=== PATIENT | male | born 1940 | race Asian ===

== ENCOUNTER 2018-10-13 14:49 | Inpatient (IN) | payer OTHER ==
[~2018-10-13] VITALS: Ht 162.6 cm; Wt 68.0 kg
[2018-10-13 14:50] VITALS: BP 115/73
--- NOTE | 2018-10-13 14:52 | NUR ---
PT BIBA TO BED 11.
--- NOTE | 2018-10-13 15:15 | NUR ---
electronic warfare technical at bedside.
--- NOTE | 2018-10-13 15:17 | NUR ---
PATIENT PRESENTS TO ED WITH via pt's daughter interpreting from german to guyanese unprovoked left sided chest pain squeezing radiating left arm x today remains but mild as described by pt. denies sob at this time no pedal edema or jvd noted DENIES N/V/D; SKIN IS PINK/WARM/DRY; AAOX4 WITH EVEN AND STEADY GAIT; LUNGS CLEAR BL; HR EVEN AND REGULAR; PT DENIES ANY FEVER,, SOB, OR COUGH AT THIS TIME; PATIENT STATES PAIN OF 5/10 AT THIS TIME; VSS; PATIENT POSITIONED FOR COMFORT; HOB ELEVATED; BEDRAILS UP X2; BED DOWN. ER MD MADE AWARE OF PT STATUS.
--- NOTE | 2018-10-13 15:26 | NUR ---
blood collected and walked over to lab
[2018-10-13 15:29] LABS: BASOPHILS # (AUTO) 0.1 K/uL (0.00-0.22); BASOPHILS % (AUTO) 0.7 % (0.0-2.0); EOSINOPHILS # (AUTO) 0.1 K/uL (0-0.4); EOSINOPHILS % (AUTO) 0.8 % (0.0-4.0); HEMATOCRIT 38.9 % (36-52); LYMPHOCYTES # (AUTO) 1.5 K/uL (2.0-11.5); LYMPHOCYTES % (AUTO) 14.1 % (20.5-51.1); MEAN CORPUSCULAR HEMOGLOBIN 30 pg (27-31); MEAN CORPUSCULAR HGB CONC 33 g/dL (33-37); MEAN CORPUSCULAR VOLUME 89.6 fL (80-94); NEUTROPHILS # (AUTO) 8.2 K/uL (1.8-7.7); NEUTROPHILS % (AUTO) 75.4 % (42.2-75.2); PLATELET COUNT (AUTO) 262 K/uL (140-450); RED BLOOD CELL COUNT(AUTO) 4.34 MIL/uL (4.20-6.10); RED CELL DISTRIBUTION WIDTH 14.4 % (11.6-13.7); WHITE BLOOD COUNT (AUTO) 10.8 K/uL (4.8-10.8)
[2018-10-13 15:55] LABS: ALBUMIN 3.6 g/dL (3.4-5.0); ANION GAP 13.5 (8-16); ASPARTATE AMINOTRANSFERASE 102 U/L (15-37); CARBON DIOXIDE 26.9 mmol/L (21-32); CHLORIDE 102 mmol/L (98-107); GLUCOSE 111 mg/dL (74-106); POTASSIUM 3.4 mmol/L (3.5-5.1); SODIUM SERUM 139 mmol/L (136-145); TOTAL BILIRUBIN 0.7 mg/dL (0.0-1.0); UREA NITROGEN, BLOOD 16 mg/dL (7-18)
--- NOTE | 2018-10-13 16:28 | NUR ---
ABNORMAL TROP LEVEL REPORTED BY LAB---TROP 15 NOTIFIED---WILL REDRAW
--- NOTE | 2018-10-13 16:31 | NUR ---
FAMILY REMAINS AT BEDSIDE---PT ADMITS TO 08/10 C/P REMAINS NO GRIMACE NO MOAN---HOLDING CONVERSATION WITH FAMILY WILL CONTINUE TO MONITOR FOR ANY CHANGES.
[2018-10-13 16:37] LABS: APPEARANCE,URINE CLEAR (CLEAR); BILIRUBIN,URINE NEGATIVE (NEGATIVE); BLOOD, URINE TRACE-L (NEGATIVE); COLOR,URINE YELLOW (YELLOW); LEUKOCYTE ESTERASE ,URINE TRACE (NEGATIVE); NITRITE, URINE NEGATIVE (NEGATIVE); UGLUCOSE NEGATIVE (NEGATIVE)
[2018-10-13 16:45] LABS: RBC,URINE 0-5 /HPF (0-5); WBC,URINE 0-5 /HPF (0-5)
[2018-10-13] MEDS ORDERED: LORazepam 2 MG/ML VIAL IM/IVP PRN (17:30)
[2018-10-13] MEDS ORDERED: ONDANSETRON 4 MG/2 ML VIAL IM/IVP PRN (17:30)
[2018-10-13] MEDS ORDERED: NACL 0.9% 1,000 ML IV SCH (17:30)
[2018-10-13] MEDS ORDERED: ACETAMINOPHEN 325 MG TAB PO PRN (17:30)
[2018-10-13] MEDS ORDERED: HYDROcodone/APAP 5/325 MG 1 TAB TAB PO PRN (17:30)
[2018-10-13] MEDS ORDERED: DOCUSATE SODIUM 100 MG GELCAP PO PRN (17:30)
[2018-10-13] MEDS ORDERED: HEPARIN PER PHARMACY MC PRN (17:35)
[2018-10-13] MEDS ORDERED: hePARIN / DEXT 5% PREMIX 250 ML IV SCH (17:35)
[2018-10-13] MEDS ORDERED: NITROGLYCERIN 0.4 MG TAB SL PRN (17:35)
--- NOTE | 2018-10-13 17:47 | NUR ---
CONTINUES TO ADMIT PAIN LEFT SIDE OF CHEST BELOW TOLERABLE LEVEL---DENIES N/V CONTINUES TO WAIT FOR AVAILABLE ROOM FOR ADMISSION
--- NOTE | 2018-10-13 18:05 | NUR ---
RECEIVED PT FROM ER VIA ÁLVARO. ALERT AND ORIENTED X4. VERBALIZES NEEDS. AMBULATORY. ORIENTED TO ROOM. SKIN DRY AND WARM TO TOUCH. SKIN DRY AND WARM TO TOUCH. IN ROOM AIR. NO SOB OR ACUTE RESPIRATORY DISTRESS NOTED. LUNGS CLEAR ON AUSCULTATION. PERIPHERAL LINE ON RFA 20. INTACT LINE. SALINE LOCK. ABDOMEN SOFT, ROUND AND NON-TENDER. ACTIVE BOWEL SOUND. DENIES ANY HEADACHE, CHEST PAIN OR DIZZINESS AT THIS TIME. SKIN INTACT. BED IN LOW POSITION LOCKED. WILL CONTINUE TO MONITOR.
[2018-10-13 18:10] VITALS: BP 108/62
[2018-10-13] MEDS ORDERED: ASPIRIN 81 MG TAB.CHEW PO SCH (18:10)
--- NOTE | 2018-10-13 18:14 | NUR ---
Pt transferred to Tele via [facility] ROOM 128-B; REPORT GIVEN ALLAN LAMAS
[2018-10-13] MEDS ORDERED: METOPROLOL 25 MG TAB PO SCH ×2 (18:15→21:00)
[2018-10-13] MEDS ORDERED: ATORVASTATIN 20 MG TAB PO SCH (18:15)
[2018-10-13] MEDS ORDERED: LISINOPRIL 5 MG TAB PO SCH (18:20)
[2018-10-13 18:24] LABS: BARBITURATE, URINE NEG. ng/ml (NEG <=200); BENZODIAZEPINE, URINE NEG. ng/mL (NEG <=200); CANNABINOID, URINE NEG. ng/mL (NEG <=50); COCAINE, URINE NEG. ng/mL (NEG <=300); OPIATE, URINE NEG. ng/mL (NEG <=2000); PHENCYCLIDINE SCREEN,URINE NEG. ng/mL (NEG <=25)
[2018-10-13 18:26] LABS: PROTHROMBIN TIME 9.8 secs (10.8-13.4)
[2018-10-13 18:27] LABS: CHOL/HDL RATIO 2.8 (1-4.5); MAGNESIUM 1.9 mg/dL (1.8-2.4); PHOSPHORUS 3.2 mg/dL (2.5-4.9); THYROID STIMULATING HORMONE 0.88 uIU/mL (0.34-3.74)
--- NOTE | 2018-10-13 18:30 | NUR ---
MRSA NARES SWAB TAKEN TO THE LAB.
--- NOTE | 2018-10-13 19:30 | NUR ---
REPORT GIVEN TO SOLAR MECHANICAL ENGINEER RN FOR CONTINUITY OF CARE. PT ON STABLE CONDITION.
--- NOTE | 2018-10-13 19:35 | NUR ---
RECEIVED REPORT FROM DAY SHIFT NURSE. AAOX4. NO C/O PAIN AT THIS TIME. NO SOB NOTED. ON ROOM AIR. SKIN INTACT. CHINESE SPEAKING. FAMILY AT BEDSIDE. PT'S DAUGHTER SCOT, SPEAKS AND UNDERSTANDS EQUATORIAL GUINEAN. IV TO RIGHT FA #20G, PATENT AND INTACT. DISCUSSED PLAN OF CARE, PT AND FAMILY VERBALIZED UNDERSTANDING. SAFETY PRECAUTION IN PLACE, CALL LIGHT WITHIN REACH.
[2018-10-13 20:00] VITALS: BP 113/65
--- NOTE | 2018-10-13 20:30 | NUR ---
INSERTED IV LINE TO RIGHT WRIST #22G TO USE FOR HEPARIN DRIP. GOOD FLUSH AND BLOOD RETURN. PT TOLERATED PROCEDURE WELL.
[2018-10-13] MEDS: hePARIN / DEXT 5% PREMIX 250 ML IV SCH ×2 (20:59→23:27)
--- NOTE | 2018-10-13 20:59 | NUR ---
HEPARIN BOLUS 4100 UNITS GIVEN. STARTED HEPARIN DRIP AT 3 ML/HR. CHECK PTT ON 10/14/18 AT 0259
[2018-10-13] MEDS ORDERED: ZOLPIDEM 5 MG TAB PO PRN (21:00)
[2018-10-13] MEDS: METOPROLOL 25 MG TAB PO SCH (21:33)
[2018-10-13] MEDS: MORPHINE SULFATE 4 MG/ML SYR IVP PRN (21:34)
--- NOTE | 2018-10-13 23:27 | NUR ---
CLARIFICATION OF HEPARIN DRIP ORDER. ORDER CHANGED FROM 3 ML/HR TO 8 ML/HR.
[2018-10-14 00:25] VITALS: BP 131/113
--- NOTE | 2018-10-14 00:35 | NUR ---
RECEIVED CRITICAL LAB VALUE TROPONIN 12.570. DR. ANGUIANO MADE AWARE.
--- NOTE | 2018-10-14 00:45 | NUR ---
DR. ANGUIANO MADE AWARE OF PT'S BP 131/113. MD ORDERED TO LOWER THE IVF TO 20 ML/HR.
[2018-10-14] MEDS ORDERED: POTASSIUM CHLORIDE 10 MEQ TABER PO SCH (01:30)
--- NOTE | 2018-10-14 01:35 | NUR ---
K DUR 40 MEQ PO GIVEN. PT TOLERATED WELL. PT DENIES PAIN OR SOB.
[2018-10-14] MEDS: hePARIN / DEXT 5% PREMIX 250 ML IV SCH (03:34)
--- NOTE | 2018-10-14 03:40 | NUR ---
RECEIVED CRITICAL LAB VALUE PTT 89.3. DR. ANGUIANO MADE AWARE. HEPARIN DRIP ADJUSTED TO 7 ML/HR PER PROTOCOL. CHECK PTT LEVEL 10/14/18 AT 0934.
[2018-10-14 04:00] VITALS: BP 112/60
--- NOTE | 2018-10-14 04:00 | NUR ---
PT'S BP 112/60. HR 58. PT LYING IN BED, AWAKE. DENIES PAIN. RESP EVEN AND UNLABORED.
--- NOTE | 2018-10-14 06:00 | NUR ---
PT SLEEPING. NO S/S OF PAIN. NO S/S OF RESP DISTRESS NOTED. IVF AND HEPARIN DRIP, INFUSING WELL. CALL LIGHT WITHIN REACH.
[2018-10-14] MEDS: MORPHINE SULFATE 4 MG/ML SYR IVP PRN (06:43)
--- NOTE | 2018-10-14 06:45 | NUR ---
PT C/O CHEST PAIN 02/10. DR. OWENS ORDERED TO GIVE MORPHINE NOW. MORPHINE 2 MG IVP GIVEN.
--- NOTE | 2018-10-14 06:50 | NUR ---
PT STILL C/O CHEST PAIN. BP 91/53, HR 58, O2 SAT 96%RA. DR. VU CAME IN TO SEE PT. HE ORDERED EKG STAT AND O2 AT 2L/MIN VIA NC, 99%. Addendum: 10/14/18 at 0727 by Kelsey Olmos RN PER , WE COULDN'T GIVE NITRO AT THIS TIME DUE TO PT'S LOW BP AND HR.
--- NOTE | 2018-10-14 07:02 | NUR ---
CALLED RT FOR STAT EKG.
--- NOTE | 2018-10-14 07:13 | NUR ---
Called [facility], talked to Devaughn [phone], stated to fax all the patient's information to [phone]. Will let RN know
--- NOTE | 2018-10-14 07:15 | NUR ---
CALLED DR. VU FOR EKG RESULT. SPOKE WITH DR. RAMÍREZ, THEY'RE AT THE MEETING AT THIS TIME AND WILL RELAY THE EKG RESULT TO DR. VU.
[2018-10-14 07:16] LABS: BASOPHILS # (AUTO) 0.1 K/uL (0.00-0.22); BASOPHILS % (AUTO) 0.9 % (0.0-2.0); EOSINOPHILS % (AUTO) 0.1 % (0.0-4.0); HEMATOCRIT 35.1 % (36-52); HEMOGLOBIN 11.8 g/dL (12.0-18.0); LYMPHOCYTES # (AUTO) 1.7 K/uL (2.0-11.5); LYMPHOCYTES % (AUTO) 12.7 % (20.5-51.1); MEAN CORPUSCULAR HEMOGLOBIN 30 pg (27-31); MEAN CORPUSCULAR HGB CONC 34 g/dL (33-37); MEAN CORPUSCULAR VOLUME 89.6 fL (80-94); MONOCYTES # (AUTO) 1.4 K/uL (0.8-1.0); MONOCYTES % (AUTO) 10.7 % (1.7-9.3); NEUTROPHILS # (AUTO) 10.1 K/uL (1.8-7.7); NEUTROPHILS % (AUTO) 75.6 % (42.2-75.2); PLATELET COUNT (AUTO) 247 K/uL (140-450); RED BLOOD CELL COUNT(AUTO) 3.91 MIL/uL (4.20-6.10); RED CELL DISTRIBUTION WIDTH 14.6 % (11.6-13.7); WHITE BLOOD COUNT (AUTO) 13.4 K/uL (4.8-10.8)
--- NOTE | 2018-10-14 07:25 | NUR ---
ENDORSED PT TO DAY SHIFT NURSE FOR CONTINUITY OF CARE. PT IN STABLE CONDITION. PT SLEEPING AT THIS TIME.
--- NOTE | 2018-10-14 07:26 | NUR ---
SBAR REPORT RECEIVED AT BEDSIDE. PATIENT RESTING IN BED, NO ACUTE DISTRESS NOTED. EASILY AWAKENS, ALERT, NORTH KOREAN SPEAKING. ON 2L NC. PATIENT ON HEPARIN DRIP. ON TELEMETRY MONITORING. DR. VU AWARE OF PATIENT CONDITION AND CRITICAL LAB VALUES. CONTINUE WITH CURRENT PLAN OF CARE.
[2018-10-14 07:27] LABS: ANION GAP 13.6 (8-16); CARBON DIOXIDE 25.4 mmol/L (21-32); CHLORIDE 105 mmol/L (98-107); CREATININE 1.2 mg/dL (0.7-1.3); GLUCOSE 123 mg/dL (74-106); SODIUM SERUM 140 mmol/L (136-145); UREA NITROGEN, BLOOD 16 mg/dL (7-18)
[2018-10-14 08:00] VITALS: BP 97/62
--- NOTE | 2018-10-14 08:02 | NUR ---
PATIENT SLEEPING AT THIS TIME, NO ACUTE DISTRESS NOTED. SPOKE WITH DR. Bismark ALBRIGHT, PATIENT WILL BE TRANSFERRED TO [facility] @ 5PM TODAY, CONTINUE WITH CURRENT TREATMENT AT THIS TIME. PATIENT CONTINUED ON HEPARIN DRIP. SPOKE WITH DR. CHIP MD MADE AWARE, CONTINUE WITH TRANSFER TO ICU FOR CLOSE MONITORING. TROPONIN LEVELS TRENDING DOWN, MD AWARE.
--- NOTE | 2018-10-14 08:08 | NUR ---
Called HS Leigh Ann, let her know that Aleena called and stated that patient will transfer to [facility] at 5pm. Leigh Ann stated that she received fax already
--- NOTE | 2018-10-14 08:20 | NUR ---
PATIENT HAS BEEN SCREENED AND CATEGORIZED MODERATE NUTRITION RISK. PATIENT WILL BE SEEN WITHIN 3-5 DAYS OF ADMISSION. 10/16/18ISABEL JENKINS RD
--- NOTE | 2018-10-14 08:29 | NUR ---
[place]ED [facility] [place] [phone] LEFT A MESSAGE FOR AUTHORIZATION FOR TRANSFER TO HIGHER LEVEL OF CARE FOR CARDIAC CATHETERIZATION.
[2018-10-14] MEDS ORDERED: LACTOBACILLUS RHAMNOSUS GG 1 EACH CAP PO SCH (09:00)
[2018-10-14] MEDS ORDERED: LISINOPRIL 5 MG TAB PO SCH ×2 (09:00)
[2018-10-14] MEDS ORDERED: ASPIRIN 81 MG TAB.CHEW PO SCH ×2 (09:00)
[2018-10-14] MEDS ORDERED: ATORVASTATIN 20 MG TAB PO SCH ×2 (09:00)
--- NOTE | 2018-10-14 09:09 | NUR ---
CALLED [facility] SENIOR HEALTH EDUCATOR SPOKE WITH ISABEL ,CARDIAC CATHETERIZATION IS SCHEDULE AT 5 PM AND PATIENT HAS TO BE THERE BY 2PM . ARRANGE TRANSPORT WITH [facility] FELT CUTTING MACHINE OPERATOR TIME WILL BE 1PM ,NOTIFIED DR VU AND DOMI ICU NURSE.
--- NOTE | 2018-10-14 09:10 | NUR ---
PT TRANSFERRED FROM TELEMETRY 106B, RECEIVED REPORT FROM CYDNEY ACUNA AT BEDSIDE. PT IS AWAKE, ALERT AND ORIENTED, ENGLISH SPEAKING. AFEBRILE AND DENIES PAIN UPON ARRIVAL. SR ON MONITOR. PT IS ON O2 AT 2 LPM/NC. BREATHING EVEN AND UNLABORED. DENIES SOB OR CHEST PAIN. PERIPHERAL IV G 20 TO RIGHT FOREARM AND G22 TO RIGHT WRIST PATENT AND INTACT. PT IS ON HEPARIN DRIP AT 7 ML/HR AND IV FLUID NS AT 20 ML/HR, ABDOMEN SOFT, NONTENDER W ACTIVE BOWEL SOUNDS. PULSES PALPABLE TO ALL EXTREMITIES. SKIN IS INTACT, DRY AND WARM TO TOUCH. HOB 30 DEGREES, BED IN LOWEST POSITION, LOCKED AND CALL LIGHT WITHIN REACH. WILL CONTINUE TO MONITOR.
--- NOTE | 2018-10-14 09:20 | NUR ---
PATIENT TRANSFERRED TO ICU BED 5, FAMILY AT BEDSIDE. NO ACUTE DISTRESS NOTED. SBAR REPORT GIVEN AT BEDSIDE TO RN NURSE. PATIENT CONTINUED ON HEPARIN DRIP ORDERED. CONTINUED ON 2L NC. RESTING INTERMITTENTLY.
--- NOTE | 2018-10-14 09:25 | NUR ---
DR. NATALEE Sofia AT BEDSIDE EXAMINING PT, TALKING TO PT'S FAMILY, EXPLAINING ABOUT PROCEDURE SCHEDULED AT [facility].
--- NOTE | 2018-10-14 09:40 | NUR ---
PT'S BP 103/65, HR 61, DR. ALBRIGHT AWARE AND PER DR. ALBRIGHT GIVE ALL MORNING MEDS TO PT.
[2018-10-14 10:00] VITALS: BP 109/71
[2018-10-14] MEDS: METOPROLOL 25 MG TAB PO SCH (10:06)
[2018-10-14 11:05] VITALS: BP 93/60
--- NOTE | 2018-10-14 11:40 | NUR ---
ECHOCARDIOGRAM COMPLETED AT BEDSIDE. VSS. NO SIGNS OF DISTRESS NOTED. SAFETY PRECAUTIONS IN PLACE.
--- NOTE | 2018-10-14 11:48 | NUR ---
MANNY FROM [facility] CALLED BACK AND PROVIDED THE AUTH # FOR TRANSPORT [id number] AND GIVEN TO CARLTON LAWSON. AUTH FOR [facility] [id number] AND LEFT A MESSAGE FOR [facility] ER ADMISSION OFFICE
--- NOTE | 2018-10-14 11:49 | NUR ---
REPORT GIVEN TO CYDNEY JOHNSON AT [facility] ROUGH ROUNDER MACHINE, .
[2018-10-14 12:00] VITALS: BP 95/58
--- NOTE | 2018-10-14 12:00 | NUR ---
NO CHANGE IN CONDITION AT THIS TIME. VSS. FAMILY AT BEDSIDE.
--- NOTE | 2018-10-14 13:00 | NUR ---
PT TRANSFERRED TO [facility] VIA [facility]. HEPARIN DRIP DISCONTINUED AND HEPARIN BOLUS GIVEN ORDERED BEFORE TRANSFER. PT IS IN STABLE CONDITION UPON TRANSFER.
== END 2018-10-14 13:00 | disposition short-term general hospital (02) | DRG 190 ==
LOC: MED 14:49 → MMU 17:30 → MIC 10-14 09:28
PROVIDERS: ADMIT General Practice; ATTEND General Practice
DX: I21.29 ST elevation (STEMI) myocardial infarction involving other sites (principal); I50.43 Acute on chronic combined systolic (congestive) and diastolic (congestive) heart failure; I95.9 Hypotension, unspecified; I11.0 Hypertensive heart disease with heart failure; E78.5 Hyperlipidemia, unspecified; E87.6 Hypokalemia; F10.10 Alcohol abuse, uncomplicated; F43.9 Reaction to severe stress, unspecified; D72.829 Elevated white blood cell count, unspecified; Z86.73 Personal history of transient ischemic attack (TIA), and cerebral infarction without residual deficits; Z87.891 Personal history of nicotine dependence
CPT/HCPCS: 36415; 71045; 80048; 80053; 80305; 81001; 82150; 83036; 83690; 83735; 83880; 84100; 84439; 84443; 84484; 85025; 85610; 85730; 87081; 87086; 93005; 99285; J0696; J1644; J2270; J7030; J7060

== ENCOUNTER 2018-11-09 23:04 | Inpatient (IN) | payer OTHER ==
[~2018-11-09] VITALS: Ht 152.4 cm; Wt 62.6 kg
[2018-11-09 23:05] VITALS: BP 130/59
--- NOTE | 2018-11-09 23:09 | NUR ---
6-- PT TAKEN TO ER BED 6 VIA WHEELCHAIR Addendum: 11/10/18 at 0102 by PACO 2304-- PT TAKEN TO ER BED 6
--- NOTE | 2018-11-09 23:10 | NUR ---
78 Y/O M BIB FAMILY WITH C/O SOB X2 HOURS. AAOX4. RECENT BYPASS SURGERY, OCT 14 2018. PER PT FAMILY, "SOMETIMES AT NIGHT HE HAS TROUBLE BREATHING. BUT TONGHTIT WAS WORSE." +2 PITTING EDEMA NOTED TO BLE. CAP REFILL LESS THAN 3 SECONDS. LABORED BREATHING, ACESSORY MUSCELS USED. BRADYCARDIC, HR 53. O2 SATURATION AT 92%. O2 THERAPY INTIATED, 2L VIA NASAL CANNULA, O2 SATURATION NOW AT 96%. Addendum: 11/10/18 at 0211 by PARISA 78 Y/O M BIB FAMILY WITH C/O SOB X2 HOURS. AAOX4. RECENT BYPASS SURGERY, OCT 14 2018. PER PT FAMILY, "SOMETIMES AT NIGHT HE HAS TROUBLE BREATHING. BUT TONGHT WAS WORSE." +2 PITTING EDEMA NOTED TO BLE. CAP REFILL LESS THAN 3 SECONDS. LABORED BREATHING, ACESSORY MUSCELS USED. BRADYCARDIC, HR 53. O2 SATURATION AT 92%. O2 THERAPY INTIATED, 2L VIA NASAL CANNULA, O2 SATURATION NOW AT 96%. RASH NOTED TO TRUNK, APPEARED YESTERDAY PER FAMILY. FAMILY AT BEDSIDE. JOSED MADE AWARE FO PT STATUS. WILL CONTINUE TO MONITOR.
--- NOTE | 2018-11-09 23:14 | NUR ---
EKG PERFORMED AT BEDSIDE
[2018-11-09] MEDS ORDERED: FOLI1TAB90 PO (23:20)
[2018-11-09] MEDS ORDERED: ATOR40TA PO (23:20)
[2018-11-09] MEDS ORDERED: POTA10TE30 PO (23:20)
[2018-11-09] MEDS ORDERED: ASPI-1718 PO (23:20)
[2018-11-09] MEDS ORDERED: PANT20EC12 PO (23:20)
[2018-11-09] MEDS ORDERED: METO25TA PO (23:20)
[2018-11-09] MEDS ORDERED: LISI5TAB18 PO (23:20)
[2018-11-09] MEDS ORDERED: AMIO200T5 PO (23:20)
[2018-11-09] MEDS ORDERED: FURO-572 PO (23:20)
[2018-11-09] MEDS ORDERED: IPRA12.9 IH (23:20)
[2018-11-09] MEDS ORDERED: DOCU100C15 PO (23:20)
[2018-11-09] MEDS ORDERED: ALBU0.0912 IH (23:20)
[2018-11-09 23:30] LABS: BASOPHILS # (AUTO) 0.1 K/uL (0.00-0.22); EOSINOPHILS # (AUTO) 0.5 K/uL (0-0.4); EOSINOPHILS % (AUTO) 6.4 % (0.0-4.0); HEMATOCRIT 33.3 % (36-52); HEMOGLOBIN 10.8 g/dL (12.0-18.0); LYMPHOCYTES # (AUTO) 1.1 K/uL (2.0-11.5); LYMPHOCYTES % (AUTO) 13.2 % (20.5-51.1); MEAN CORPUSCULAR HEMOGLOBIN 31 pg (27-31); MEAN CORPUSCULAR HGB CONC 32 g/dL (33-37); MEAN CORPUSCULAR VOLUME 95.3 fL (80-94); MONOCYTES # (AUTO) 1.2 K/uL (0.8-1.0); MONOCYTES % (AUTO) 13.8 % (1.7-9.3); NEUTROPHILS # (AUTO) 5.5 K/uL (1.8-7.7); NEUTROPHILS % (AUTO) 65.6 % (42.2-75.2); PLATELET COUNT (AUTO) 324 K/uL (140-450); RED BLOOD CELL COUNT(AUTO) 3.49 MIL/uL (4.20-6.10); RED CELL DISTRIBUTION WIDTH 19.2 % (11.6-13.7); WHITE BLOOD COUNT (AUTO) 8.4 K/uL (4.8-10.8)
[2018-11-09 23:38] LABS: CARBON DIOXIDE 23.3 mmol/L (21-32); CHLORIDE 102 mmol/L (98-107); CREATININE 2.6 mg/dL (0.7-1.3); GLUCOSE 130 mg/dL (74-106); POTASSIUM 4.3 mmol/L (3.5-5.1); SODIUM SERUM 138 mmol/L (136-145); UREA NITROGEN, BLOOD 33 mg/dL (7-18)
[2018-11-09 23:44] LABS: ALBUMIN 3.5 g/dL (3.4-5.0); ASPARTATE AMINOTRANSFERASE 102 U/L (15-37); TOTAL BILIRUBIN 1.3 mg/dL (0.0-1.0)
[2018-11-09 23:58] LABS: APPEARANCE,URINE SL CLOUDY (CLEAR); BILIRUBIN,URINE NEGATIVE (NEGATIVE); BLOOD, URINE NEGATIVE (NEGATIVE); COLOR,URINE YELLOW (YELLOW); LEUKOCYTE ESTERASE ,URINE TRACE (NEGATIVE); NITRITE, URINE NEGATIVE (NEGATIVE); UGLUCOSE NEGATIVE (NEGATIVE)
[2018-11-10] MEDS ORDERED: PIPERACILLIN/TAZOBACTAM 3.375 GM in DEXTROSE 5% 50 ML IV ONE ×2
[2018-11-10] MEDS ORDERED: VANCOMYCIN 1,000 MG in DEXTROSE 5% 250 ML IV ONE ×2
[2018-11-10 00:12] LABS: HYALINE CASTS, URINE 0-10 /LPF (None Seen); RBC,URINE 0-5 /HPF (0-5); WBC,URINE 0-5 /HPF (0-5)
[2018-11-10 00:13] LABS: URINE AMORPHOUS URATE 3+ /HPF (None Seen)
--- NOTE | 2018-11-10 00:30 | NUR ---
PT AWAKE. PT BRADYCARDIC, ASYMPTOMATIC. FAMILY AT BEDSIDE. WILL CONTINUE TO MONITOR.
[2018-11-10] MEDS ORDERED: PIPERACILLIN/TAZOBACTAM 3.375 GM VIAL IV ONE (00:43)
[2018-11-10] MEDS ORDERED: HYDROcodone/APAP 7.5/325 MG 1 TAB PO PRN (00:55)
[2018-11-10] MEDS ORDERED: ONDANSETRON 4 MG/2 ML VIAL IM/IVP PRN (00:55)
[2018-11-10] MEDS ORDERED: DOCUSATE SODIUM 100 MG GELCAP PO PRN (00:55)
[2018-11-10] MEDS ORDERED: ACETAMINOPHEN 325 MG TAB PO PRN (00:55)
[2018-11-10] MEDS ORDERED: NACL 0.9% 500 ML IV ONE (01:20)
--- NOTE | 2018-11-10 01:34 | NUR ---
Vancomycin given to CYDNEY Blakely to infuse.
--- NOTE | 2018-11-10 01:35 | NUR ---
Patient will be admitted to care of Dr. King. Admited to [facility]. Will go to room 108B. Belongings list completed. VSS at time of transport. Report to CYDNEY Blakely. Transfer of care at this time.
[2018-11-10] MEDS ORDERED: VANCOMYCIN PER PHARMACY MC PRN (01:40)
[2018-11-10] MEDS ORDERED: VANCOMYCIN 1,000 MG VIAL ONE (01:42)
[2018-11-10] MEDS ORDERED: ALBUTEROL SULFATE/IPRATROPIU 3 ML SOL IH PRN (01:45)
--- NOTE | 2018-11-10 01:50 | NUR ---
Patient arrived in unit via gurney, assisted by two LABEL STAMPER's and patient's daughter Racehle and son-in-law Q; patient A/Ox4, able to make needs known, Tunisian speaking only, bedrest. Patient unable to ambulate from gurney to bed. Introduced self, updated board, oriented patient to room and hospital environment. Able to get patient history from daughter and son-in-law. No SOB or distress noted, on O2 2LPM via nasal cannula. Chief complaint of SOB, diagnosis is Pneumonia, Elevated troponin, Sepsis rule out pulmonary embolism. IV site on left antecubital, 20 gauge, saline locked. Skin intact, but noted with stitched from bypass surgery performed on October 13, 2018. Bed in the lowest position, call light within reach. Initial assessment done. Will continue to monitor.
[2018-11-10 01:52] LABS: CHOL/HDL RATIO 4.2 (1-4.5); FREE T4 (FREE THYROXINE) 1.44 ng/dL (0.76-1.46); MAGNESIUM 2.2 mg/dL (1.8-2.4); THYROID STIMULATING HORMONE 7.37 uIU/mL (0.34-3.74)
--- NOTE | 2018-11-10 01:52 | NUR ---
Patient noted with pitting edema +3 bilateral lower extremity.
[2018-11-10] MEDS ORDERED: hePARIN / DEXT 5% PREMIX 250 ML IV SCH (02:05)
[2018-11-10] MEDS ORDERED: HEPARIN PER PHARMACY MC PRN (02:05)
[2018-11-10] MEDS: NACL 0.9% 1,000 ML IV SCH (02:22)
--- NOTE | 2018-11-10 03:30 | NUR ---
Checks on patient, patient asleep, visible chest rise and fall noted.
[2018-11-10 04:00] VITALS: BP 119/81
--- NOTE | 2018-11-10 04:10 | NUR ---
Vitals taken, no distress noted.
[2018-11-10] MEDS: PANTOPRAZOLE 40 MG TABEC PO SCH (06:25)
[2018-11-10] MEDS ORDERED: PIPERACILLIN/TAZOBACTAM 2.25 GM VIAL IV ONE (06:31)
[2018-11-10] MEDS ORDERED: ALBUTEROL SULFATE/IPRATROPIU 3 ML SOL IH SCH (07:00)
[2018-11-10] MEDS ORDERED: PIPER/TAZO 2.25GM/D5W PREMIX 50 ML IV SCH (07:00)
--- NOTE | 2018-11-10 07:20 | NUR ---
RECEIVED BEDSIDE REPORT FROM RN TONY. PT STABLE, SLEEPING, BUT EASILY AROUSABLE. NO SIGNS OF DISTRESS NOTED. DENIES PAIN OR SOB. ON 3L O2 VIA NC. NO REDNESS, SWELLING, OR INFLAMMATION NOTED ON IV SITE. CALL WINTER WITHIN REACH. BED IN LOWEST POSITION, BED ALARM ON. SAFETY MEASURES IN PLACE. PLAN OF CARE REVIEWED.
--- NOTE | 2018-11-10 07:22 | NUR ---
Endorsed patient to AM shift RN for continuity of care; patient in stable condition.
[2018-11-10 07:29] LABS: BASOPHILS # (AUTO) 0.1 K/uL (0.00-0.22); BASOPHILS % (AUTO) 1.2 % (0.0-2.0); EOSINOPHILS # (AUTO) 0.6 K/uL (0-0.4); EOSINOPHILS % (AUTO) 6.4 % (0.0-4.0); HEMATOCRIT 32.4 % (36-52); HEMOGLOBIN 10.5 g/dL (12.0-18.0); LYMPHOCYTES # (AUTO) 1.4 K/uL (2.0-11.5); LYMPHOCYTES % (AUTO) 15.5 % (20.5-51.1); MEAN CORPUSCULAR HEMOGLOBIN 31 pg (27-31); MEAN CORPUSCULAR HGB CONC 33 g/dL (33-37); MONOCYTES % (AUTO) 10.4 % (1.7-9.3); NEUTROPHILS # (AUTO) 6.2 K/uL (1.8-7.7); NEUTROPHILS % (AUTO) 66.5 % (42.2-75.2); PLATELET COUNT (AUTO) 301 K/uL (140-450); RED BLOOD CELL COUNT(AUTO) 3.41 MIL/uL (4.20-6.10); RED CELL DISTRIBUTION WIDTH 19.4 % (11.6-13.7)
[2018-11-10 07:34] LABS: ANION GAP 17.2 (8-16); CHLORIDE 103 mmol/L (98-107); CREATININE 2.4 mg/dL (0.7-1.3); GLUCOSE 129 mg/dL (74-106); POTASSIUM 4.2 mmol/L (3.5-5.1); SODIUM SERUM 139 mmol/L (136-145); UREA NITROGEN, BLOOD 32 mg/dL (7-18)
[2018-11-10 08:00] VITALS: BP 129/73
[2018-11-10 08:28] LABS: WHITE BLOOD COUNT (AUTO) 9.3 K/uL (4.8-10.8)
--- NOTE | 2018-11-10 08:45 | NUR ---
SPOKE WITH MARITZA NGUYEN REGARDING ORDERED 0 SCHEDULED HEPARIN DRIP. INFORMED MARITZA NGUYEN AND DR KASPER THAT PM RN TONY WAS UNABLE TO GIVE HEPARIN DRIP. PER MARITZA NGUYEN, HE WILL ORDER PT AND PTT LAB STAT THEN HEPARIN DRIP CAN BE STARTED SOON RESULTS ARE AVAILABLE. WILL CONTINUE TO MONITOR PT.
[2018-11-10] MEDS: LISINOPRIL 5 MG TAB PO SCH (09:00)
[2018-11-10] MEDS ORDERED: FUROSEMIDE 40 MG/4 ML VIAL IVP SCH ×2 (09:00→21:00)
--- NOTE | 2018-11-10 09:15 | NUR ---
PT DENIES ANY CHEST PAIN OR SOB. PT PUT ON BED OWUSU FOR BM. FAMILY AT THE BEDSIDE.
[2018-11-10 09:17] LABS: PROTHROMBIN TIME 12.3 secs (10.8-13.4)
[2018-11-10] MEDS: LACTOBACILLUS RHAMNOSUS GG 1 EACH CAP PO SCH (10:01)
[2018-11-10] MEDS: ASPIRIN 81 MG TAB.CHEW PO SCH (10:01)
[2018-11-10] MEDS: POTASSIUM CHLORIDE 10 MEQ TABER PO SCH (10:02)
[2018-11-10] MEDS: AMIODARONE 200 MG TAB PO SCH ×2 (10:04→20:18)
[2018-11-10] MEDS: ATORVASTATIN 20 MG TAB PO SCH (10:05)
[2018-11-10] MEDS: DOCUSATE SODIUM 100 MG GELCAP PO SCH (10:05)
[2018-11-10] MEDS: METOPROLOL 25 MG TAB PO SCH ×2 (10:06→20:21)
[2018-11-10] MEDS: hePARIN / DEXT 5% PREMIX 250 ML IV SCH ×2 (10:20→18:31)
--- NOTE | 2018-11-10 10:20 | NUR ---
ADMINISTERED SCHEDULED MEDICATIONS, PT TOLERATED WELL. HELD SCHEDULED LISINOPRIL, AMIODARONE, AND METOPROLOL DUE TO HR IS 56, MADE DR KASPER AWARE. HEPARIN BOLUS GIVEN PER MD ORDER, HEPARIN DRIP STARTED AT 6.5 ML/HR,. PTT LAB ORDERED 6 HRS FROM START TIME.
--- NOTE | 2018-11-10 11:20 | NUR ---
INSERTED ANOTHER IV ON RIGHT FA 22G FOR IV FLUIDS TO RUN. PT TOLERATED WELL.
[2018-11-10 12:00] VITALS: BP 150/72
--- NOTE | 2018-11-10 12:10 | NUR ---
VITAL SIGNS TAKEN, PT STABLE. PT DENIES ANY PAIN OR SOB. WILL CONTINUE TO MONITOR.
[2018-11-10] MEDS: ALBUTEROL SULFATE/IPRATROPIU 3 ML SOL IH SCH ×3 (12:41→19:02)
[2018-11-10] MEDS: PIPER/TAZO 2.25GM/D5W PREMIX 50 ML IV SCH ×2 (13:16→20:17)
--- NOTE | 2018-11-10 13:20 | NUR ---
ADMINISTERED SCHEDULED MEDICATIONS, PT TOLERATED WELL. NO OTHER NEEDS AT THIS TIME.
--- NOTE | 2018-11-10 15:10 | NUR ---
PT STABLE, SLEEPING, BUT EASILY AROUSABLE. NO SIGNS OF DISTRESS NOTED. CHEST RISE AND FALL VISIBLY NOTED.
[2018-11-10 16:00] VITALS: BP 142/64
[2018-11-10] MEDS: FUROSEMIDE 40 MG/4 ML VIAL IVP SCH (16:20)
--- NOTE | 2018-11-10 16:24 | NUR ---
VITAL SIGNS TAKEN, PT STABLE. ADMINISTERED SCHEDULED MEDICATION, PT TOLERATED WELL. NO OTHER NEEDS AT THIS TIME.
--- NOTE | 2018-11-10 17:35 | NUR ---
PTT LAB IS STILL PENDING AT THIS TIME. WILL CONTINUE TO MONITOR.
--- NOTE | 2018-11-10 18:20 | NUR ---
RECEIVED CALL FROM LAB REGARDING PT'S PTT 75.7. HEPARIN DRIP ADJUSTED TO 5.5ML/HR PER PROTOCOL. PT TOLERATED WELL. WILL ORDER PTT LAB.
--- NOTE | 2018-11-10 18:41 | NUR ---
NEXT PTT LAB ORDERED 11/11/18 AT 0030.
--- NOTE | 2018-11-10 19:10 | NUR ---
ENDORSED PT TO CYDNEY COLLINS FOR CONTINUITY OF CARE. PT STABLE.
[2018-11-10 20:00] VITALS: BP 100/65
--- NOTE | 2018-11-10 20:27 | NUR ---
HELD SCHEDULED METOPROLOL DUE TO LOW BLOOD PRESSURE OF 100/65.
--- NOTE | 2018-11-10 21:11 | NUR ---
RECEIVED BEDSIDE REPORT FROM DAY SHIFT RN ABY GALAN. PT A/O X4. DISCUSSED PLAN OF CARE. AND DAUGHTER AT BEDSIDE. DAUGHTER TRANSLATED IN SERBIAN. VERBALIZES UNDERSTANDING. NO SIGNS OF DISTRESS. NASAL CANULA @2L. CARDIAC DIET. STANDARD PRECAUTIONS. FALL PRECAUTIONS IN PLACE. YELLOW BAND, SOCKS, GOWN. BED ALARM. BED IN LOW POSITION. CALL LIGHT WITHIN PLACE. SKIN IS NOT INTACT. RIGHT AND LEFT INNER KNEE WOUND. DRESSINGS CLEAN DRY AND INTACT. L AC 20G INFUSING HEPARIN DRIP. R FA 22G INFUSING NS @10. BOTH PATENT AND INTACT. URINAL AT BEDSIDE. PT BEDREST. WILL CONTINUE TO MONITOR. Addendum: 11/10/18 at 2128 by Brynn Selby RN WRONG TIME. 1910 IS CORRECT TIME.
--- NOTE | 2018-11-10 21:29 | NUR ---
ASSISTED TO USE BED OWUSU. PERFORMED JANELLE CARE. TOLERATED WELL. NO SIGNS OF DISTRESS. WILL CONTINUE TO MONITOR.
--- NOTE | 2018-11-10 23:41 | NUR ---
VITALS TAKEN. TOLERATED WELL. VITALS WITHIN NORMAL LIMITS. BED IN LOW POSITION. CALL LIGHT WITHIN REACH. WILL CONTINUE TO MONITOR.
--- NOTE | 2018-11-10 23:53 | NUR ---
ASSISTED TO USE BED OWUSU. PT ABLE TO ASSIST WITH PLACEMENT. NO SIGNS OF DISTRESS. PERFORMED JANELLE CARE. TOLERATED WELL. WILL CONTINUE TO MONITOR.
[2018-11-11] VITALS: BP 100/58
--- NOTE | 2018-11-11 00:50 | NUR ---
LUMBER RACKER SAW PT TO DRAW BLOOD FOR PTT FOR HEPARIN DRIP. HEPARIN DRIP STILL INFUSING AT 550 UNITS PER HOUR. WILL CONTINUE TO MONITOR.
[2018-11-11] MEDS: NACL 0.9% 1,000 ML IV SCH (00:51)
--- NOTE | 2018-11-11 01:32 | NUR ---
RECEIVED CALL FROM [employer] AT 0132. CRITICAL LAB VALUE OF PTT 57.5. MADE CHARGE NURSE AWARE. ACCORDING TO PROTOCOL, THERE ARE NO CHANGES AT THIS TIME. HEPARIN DRIP REMAINS AT 550 UNITS PER HOUR/ 5.5 ML PER HOUR.
--- NOTE | 2018-11-11 03:43 | NUR ---
SLEEPING IN BED. EASILY AROUSABLE. DENIES PAIN. NO SOB. NO SIGN OF DISTRESS. WILL CONTINUE TO MONITOR.
[2018-11-11 04:00] VITALS: BP 105/72
[2018-11-11] MEDS: PIPER/TAZO 2.25GM/D5W PREMIX 50 ML IV SCH (05:35)
[2018-11-11] MEDS: LEVOTHYROXINE 0.025 MG TAB PO SCH (05:37)
[2018-11-11] MEDS: PANTOPRAZOLE 40 MG TABEC PO SCH (05:37)
[2018-11-11 07:32] LABS: ANION GAP 14.3 (8-16); CARBON DIOXIDE 25.9 mmol/L (21-32); CHLORIDE 102 mmol/L (98-107); CREATININE 2.4 mg/dL (0.7-1.3); GLUCOSE 87 mg/dL (74-106); POTASSIUM 3.2 mmol/L (3.5-5.1); SODIUM SERUM 139 mmol/L (136-145); UREA NITROGEN, BLOOD 32 mg/dL (7-18)
--- NOTE | 2018-11-11 07:36 | NUR ---
ENDORSED PT TO DAYSHIFT RN. PT IN STABLE CONDITION.
--- NOTE | 2018-11-11 07:37 | NUR ---
Received report from pm nurse. Pt in semi-fowlers in bed, awake, no signs of distress on O2 @ 2Lpm via n/c. Left AC IV intact & asymptomatic with ongoing heparin drip @ 5.5ml/hr, right forearm IV intact & asymptomatic with ongoing NS @ 10ml/hr. Call light within reach. at bedside.
[2018-11-11 07:43] LABS: PHOSPHORUS 3.8 mg/dL (2.5-4.9)
[2018-11-11 08:00] VITALS: BP 132/60
[2018-11-11] MEDS ORDERED: POTASSIUM CHLORIDE 10 MEQ TABER PO SCH (08:49)
[2018-11-11] MEDS ORDERED: FUROSEMIDE 40 MG/4 ML VIAL IVP SCH (09:00)
[2018-11-11] MEDS: ATORVASTATIN 20 MG TAB PO SCH (09:06)
[2018-11-11] MEDS: METOPROLOL 25 MG TAB PO SCH ×2 (09:08→20:40)
[2018-11-11] MEDS: LISINOPRIL 5 MG TAB PO SCH (09:08)
[2018-11-11] MEDS: AMIODARONE 200 MG TAB PO SCH ×2 (09:08→20:39)
[2018-11-11] MEDS: DOCUSATE SODIUM 100 MG GELCAP PO SCH (09:09)
[2018-11-11] MEDS: FUROSEMIDE 40 MG/4 ML VIAL IVP SCH ×2 (09:10→17:40)
[2018-11-11] MEDS: LACTOBACILLUS RHAMNOSUS GG 1 EACH CAP PO SCH (09:10)
[2018-11-11] MEDS: POTASSIUM CHLORIDE 10 MEQ TABER PO SCH (09:11)
[2018-11-11] MEDS: ASPIRIN 81 MG TAB.CHEW PO SCH (09:11)
--- NOTE | 2018-11-11 09:14 | NUR ---
PATIENT HAS BEEN SCREENED AND CATEGORIZED HIGH NUTRITION RISK. PATIENT WILL BE SEEN WITHIN 1-2 DAYS OF ADMISSION. 11/11/[address]
--- NOTE | 2018-11-11 09:48 | NUR ---
HEPARIN DISCONTINUED AT THIS TIME. PT HAS NO S/S OF DISTRESS.
[2018-11-11 09:55] LABS: BASOPHILS # (AUTO) 0.1 K/uL (0.00-0.22); BASOPHILS % (AUTO) 1.1 % (0.0-2.0); EOSINOPHILS # (AUTO) 0.6 K/uL (0-0.4); EOSINOPHILS % (AUTO) 7.8 % (0.0-4.0); HEMOGLOBIN 9.5 g/dL (12.0-18.0); LYMPHOCYTES # (AUTO) 0.6 K/uL (2.0-11.5); LYMPHOCYTES % (AUTO) 7.7 % (20.5-51.1); MEAN CORPUSCULAR HEMOGLOBIN 31 pg (27-31); MEAN CORPUSCULAR HGB CONC 33 g/dL (33-37); MEAN CORPUSCULAR VOLUME 93.8 fL (80-94); NEUTROPHILS # (AUTO) 5.8 K/uL (1.8-7.7); NEUTROPHILS % (AUTO) 71.4 % (42.2-75.2); PLATELET COUNT (AUTO) 244 K/uL (140-450); RED BLOOD CELL COUNT(AUTO) 3.09 MIL/uL (4.20-6.10); RED CELL DISTRIBUTION WIDTH 18.3 % (11.6-13.7); WHITE BLOOD COUNT (AUTO) 8.2 K/uL (4.8-10.8)
--- NOTE | 2018-11-11 10:05 | NUR ---
Pt with dressings peeling off from skin on inner aspect of both knees dated 10/26/18. Dressings removed. Pt with dry black scabs to right inner knee (2x0.4cm), left inner knee (#1 0.1x2.5cm, #2 7x0.5cm). No redness/swelling noted to surrounding tissue. No c/o pain or discomfort. Call light within reach.
[2018-11-11] MEDS ORDERED: hePARIN / DEXT 5% PREMIX 250 ML IV SCH (10:40)
[2018-11-11] MEDS ORDERED: HEPARIN PER PHARMACY MC PRN ×2 (10:40→10:45)
[2018-11-11 12:00] VITALS: BP 99/59
[2018-11-11] MEDS: hePARIN / DEXT 5% PREMIX 250 ML IV SCH (12:19)
--- NOTE | 2018-11-11 12:19 | NUR ---
Initiated new heparin drip to left AC IV @ 10ml/hr (1000 units/hr). Pt in high fowlers in bed, awake, no s/s of distress, respirations even & nonlabored. No signs of bleeding noted. IV asymptomatic & patent. Call light within reach.
--- NOTE | 2018-11-11 14:27 | NUR ---
11/11/18 RD INITIAL ASSESSMENT COMPLETED PLEASE REFER TO NUTRITION ASSESSMENT UNDER CARE ACTIVITY FOR ESTIMATED NUTRITIONAL NEEDS. 1. CONTINUE CARDIAC DIET TOLERATED 2. RECOMMEND ENSURE TID FOR POOR PO INTAKE 3. RD TO FOLLOW-UP 3-5 DAYS, MODERATE RISK ISABEL JENKINS, RD
[2018-11-11 16:00] VITALS: BP 104/66
--- NOTE | 2018-11-11 16:00 | NUR ---
PT BLANKET AND PILLOW CASE CHANGED. RESPIRATIONS EVEN AND UNLABORED ON O2 2L/MIN VIA N/C. NO C/O PAIN AT THIS TIME.
--- NOTE | 2018-11-11 17:45 | NUR ---
PT GIVEN LASIX PER ORDER. SITTING UP IN BED EATING DINNER. PT SHOWED SHORTNESS OF BREATH AFTER SEVERAL SPOONFULS. TITRATED O2 TO 3L/MIN VIA N/C. EDUCATED TO SLOW DOWN IN BETWEEN BITES TO TAKE A BREATH. WILL CONTINUE TO MONITOR PT.
--- NOTE | 2018-11-11 19:05 | NUR ---
Received PTT result from laborer construction or leak gang. Report given to pm nurse John for heparin drip adjustment per protocol.
--- NOTE | 2018-11-11 19:25 | NUR ---
ENDORSED PT TO NOC SHIFT NURSE. NO DISTRESS NOTED AT THIS TIME.
--- NOTE | 2018-11-11 19:26 | NUR ---
RECEIVED REPORT FROM CYDNEY DE LEON AT PT BEDSIDE. PT ECUADOREAN SPEAKING, ON 3L O2 VIA NASAL CANNULA. ABLE TO MAKE NEEDS KNOWN, ABLE TO FOLLOW COMMANDS. PT ON HEPARIN DRIP THAT WAS HELD DUE TO PTT LEVELS. PT IS ON BEDREST AND SKIN IS INTACT. PT JUST HAS DRY SCABS TO BILATERAL MEDIAL ASPECT OF KNEES AND TO CHEST. PT HAS 20G IV TO LEFT AC, AND 22G TO RIGHT FOREARM. PT DENIES HAVING ANY PAIN. VITAL SIGNS STABLE, NO SIGNS OF DISTRESS NOTED. BED IN LOWEST POSITION WITH BED ALARM ON, CALL LIGHT WITHIN REACH. WILL CONTINUE TO MONITOR.
[2018-11-11 20:00] VITALS: BP 119/64
--- NOTE | 2018-11-11 20:40 | NUR ---
ADMINISTERED SCHEDULED MEDICATIONS, AND RESUMED HEPARIN DRIP. PT TOLERATING WELL. PTT ORDERED FOR 6 HOURS LATER AT 02:40.
--- NOTE | 2018-11-11 21:45 | NUR ---
PT HAD BM ON BEDPAN. JANELLE CARE GIVEN. PT NOW RESTING. NO SIGNS OF DISTRESS NOTED. BED IN LOWEST POSITION WITH BED ALARM ON, CALL LIGHT WITHIN REACH. WILL CONTINUE TO MONITOR.
[2018-11-12] VITALS: BP 105/69
--- NOTE | 2018-11-12 | NUR ---
PT DENIES HAVING ANY PAIN. VITAL SIGNS STABLE, NO SIGNS OF DISTRESS NOTED. BED IN LOWEST POSITION WITH BED ALARM ON, CALL LIGHT WITHIN REACH. WILL CONTINUE TO MONITOR.
--- NOTE | 2018-11-12 01:45 | NUR ---
PT C/O COLD TEMPERATURE, RAISED TEMP IN ROOM AND COVERED WITH EXTRA BLANKET.
--- NOTE | 2018-11-12 03:44 | NUR ---
HELD HEPARIN DRIP DUE TO PTT LEVELS AT 125.4, WILL RESUME IN 1 HR PER PROTOCOL.
[2018-11-12 04:00] VITALS: BP 126/76
[2018-11-12] MEDS: hePARIN / DEXT 5% PREMIX 250 ML IV SCH ×3 (04:49→19:18)
--- NOTE | 2018-11-12 04:49 | NUR ---
RESUMED HEPARIN DRIP AT 7MLS/HR.
[2018-11-12] MEDS ORDERED: PIPER/TAZO 3.375GM/D5W PREMIX 50 ML IV SCH (06:00)
--- NOTE | 2018-11-12 06:30 | NUR ---
OBTAINED SPUTUM SAMPLE AND SENT TO LAB.
--- NOTE | 2018-11-12 06:33 | NUR ---
LEVOTHYROXINE MEDICATION NOT IN PYXIS. TRIED CALLING PHARMACY SEVERAL TIMES BUT NO ANSWER. WILL ENDORSE TO DAY SHIFT RN.
[2018-11-12] MEDS ORDERED: PIPER/TAZO 2.25GM/D5W PREMIX 50 ML IV SCH (07:00)
[2018-11-12 07:36] LABS: BASOPHILS # (AUTO) 0.1 K/uL (0.00-0.22); EOSINOPHILS # (AUTO) 0.6 K/uL (0-0.4); EOSINOPHILS % (AUTO) 7.5 % (0.0-4.0); HEMATOCRIT 28.7 % (36-52); HEMOGLOBIN 9.5 g/dL (12.0-18.0); LYMPHOCYTES # (AUTO) 0.7 K/uL (2.0-11.5); LYMPHOCYTES % (AUTO) 8.7 % (20.5-51.1); MEAN CORPUSCULAR HEMOGLOBIN 31 pg (27-31); MEAN CORPUSCULAR HGB CONC 33 g/dL (33-37); MEAN CORPUSCULAR VOLUME 94.4 fL (80-94); MONOCYTES # (AUTO) 1.1 K/uL (0.8-1.0); MONOCYTES % (AUTO) 12.7 % (1.7-9.3); NEUTROPHILS # (AUTO) 5.8 K/uL (1.8-7.7); NEUTROPHILS % (AUTO) 70.1 % (42.2-75.2); PLATELET COUNT (AUTO) 247 K/uL (140-450); RED BLOOD CELL COUNT(AUTO) 3.04 MIL/uL (4.20-6.10); RED CELL DISTRIBUTION WIDTH 18.8 % (11.6-13.7); WHITE BLOOD COUNT (AUTO) 8.3 K/uL (4.8-10.8)
--- NOTE | 2018-11-12 07:37 | NUR ---
ENDORSED PT TO DAY SHIFT CYDNEY LATHAM FOR CONTINUITY OF CARE. PT IN STABLE CONDITION.
--- NOTE | 2018-11-12 07:38 | NUR ---
RECEIVED REPORT FROM RETOUCHER PHOTOENGRAVING NURSE. PATIENT LYING DOWN IN BED SLEEPING, AROUSABLE BY VOICE. NO DISTRESS NOTED. DENIES ANY PAIN AT THIS TIME. RESPIRATIONS EVEN, UNLABORED, ON O2 2L/MIN VIA NC. LUNGS WHEEZING THROUGHOUT ALL LOBES UPON EXPIRATION. ABDOMEN SOFT, NON-DISTENDED. IV SITES INTACT, PATENT, AND INFUSING HEPARIN DRIP AND IVF PER MD ORDERS. REVIEWED PLAN OF CARE WITH PATIENT. PATIENT VERBALIZED UNDERSTANDING. SAFETY MEASURES IN PLACE, CALL LIGHT WITHIN REACH. WILL CONTINUE TO MONITOR.
[2018-11-12] MEDS ORDERED: ALBUTEROL SULFATE/IPRATROPIU 3 ML SOL IH PRN (07:45)
[2018-11-12 08:00] VITALS: BP 116/77
[2018-11-12 08:44] LABS: ANION GAP 13.8 (8-16); CHLORIDE 103 mmol/L (98-107); POTASSIUM 3.8 mmol/L (3.5-5.1); SODIUM SERUM 140 mmol/L (136-145)
[2018-11-12 08:45] LABS: CREATININE 2.4 mg/dL (0.7-1.3); GLUCOSE 94 mg/dL (74-106); UREA NITROGEN, BLOOD 31 mg/dL (7-18)
[2018-11-12 08:51] LABS: MAGNESIUM 2.1 mg/dL (1.8-2.4); PHOSPHORUS 4.2 mg/dL (2.5-4.9)
--- NOTE | 2018-11-12 09:10 | NUR ---
REVIEWED ABG SAMPLE REPORT WITH DR. SÁNCHEZ KASPER NO NEW ORDERS
[2018-11-12] MEDS: ATORVASTATIN 20 MG TAB PO SCH (09:14)
[2018-11-12] MEDS: LEVOTHYROXINE 0.025 MG TAB PO SCH (09:14)
[2018-11-12] MEDS: ASPIRIN 81 MG TAB.CHEW PO SCH (09:15)
[2018-11-12] MEDS: AMIODARONE 200 MG TAB PO SCH ×2 (09:15→20:07)
[2018-11-12] MEDS: METOPROLOL 25 MG TAB PO SCH ×2 (09:15→20:06)
[2018-11-12] MEDS: FUROSEMIDE 40 MG/4 ML VIAL IVP SCH ×2 (09:15→18:11)
--- NOTE | 2018-11-12 09:23 | NUR ---
PATIENT LYING DOWN IN BED. NO DISTRESS NOTED. DENIES ANY PAIN. FAMILY MEMBERS AT BEDSIDE. SCHEDULED MEDICATIONS DUE GIVEN. WILL CONTINUE TO MONITOR.
[2018-11-12] MEDS: ALBUTEROL SULFATE/IPRATROPIU 3 ML SOL IH SCH ×3 (11:26→20:06)
--- NOTE | 2018-11-12 11:37 | NUR ---
MODERATE NPC PATIENT REFUSING OROPHARYNX SUCTIONING FOR SPUTUM CULTURE SAMPLE NOA/RN NOTIFIED
[2018-11-12 12:00] VITALS: BP 134/74
[2018-11-12] MEDS: PIPER/TAZO 2.25GM/D5W PREMIX 50 ML IV SCH ×2 (12:38→20:07)
--- NOTE | 2018-11-12 12:39 | NUR ---
PATIENT LYING DOWN IN BED. NO DISTRESS NOTED. DENIES ANY PAIN. SCHEDULED MEDICATIONS DUE GIVEN. WILL CONTINUE TO MONITOR.
--- NOTE | 2018-11-12 15:00 | NUR ---
PATIENT LYING DOWN IN BED SLEEPING, AROUSABLE BY VOICE. NO DISTRESS NOTED. CONDITION UNCHANGED. WILL CONTINUE TO MONITOR.
[2018-11-12 16:00] VITALS: BP 113/72
--- NOTE | 2018-11-12 17:30 | NUR ---
PATIENT SITTING IN BED WITH DINNER TRAY IN FRONT. FAMILY MEMBERS AT BEDSIDE. NO DISTRESS NOTED. DENIES ANY PAIN. SCHEDULED MEDICATIONS DUE GIVEN. WILL CONTINUE TO MONITOR.
--- NOTE | 2018-11-12 19:30 | NUR ---
GAVE REPORT TO DRAFTING INSTRUCTOR NURSE FOR CONTINUITY OF CARE. PATIENT IN STABLE CONDITION.
--- NOTE | 2018-11-12 19:31 | NUR ---
REPORT RECEIVED FROM AM NURSE AT BEDSIDE. PT IN STABLE CONDITION. AAOX4. INTRODUCED SELF TO PT. BOARD UPDATED. NO COMPLAINTS OF PAIN. NO SOB ON 2L O2 VIA NC. AFEBRILE AT 99.3. PT IS AMBULATORY WITH 2 PERSON ASSIST. IV SITE L AC 20G RUNNING HEPARIN AT 6ML/HR PATENT AND INTACT. R FA 22G RUNNING NS@TKO PATENT AND INTACT. SKIN WARM, DRY, AND INTACT WITH NO OPEN WOUNDS BUT HAS SCABS ON MEDIAL BILATERAL LEGS. BED LOCKED IN LOW POSITION. CALL WINTER WITHIN REACH. SAFETY PRECAUTION IN PLACE. ALL NEEDS MET AT THIS TIME.
[2018-11-12 20:00] VITALS: BP 116/74
--- NOTE | 2018-11-12 20:00 | NUR ---
ORDER TO D/C HEPARIN BY . HEPARIN STOPPED AND D/C FROM PATIENT. Addendum: 11/12/18 at 2105 by Paul Arizmendi RN VERIFIED WITH .
--- NOTE | 2018-11-12 20:06 | NUR ---
CORDARONE AND METOPROLOL GIVEN PO. ZOSYN HUNG AND RUNNING. PT TOLERATING WELL.
--- NOTE | 2018-11-12 20:50 | NUR ---
CONDOM CATH PLACED.
--- NOTE | 2018-11-12 22:13 | NUR ---
PT GOING FOR CT CHEST WITHOUT CONTRAST.
--- NOTE | 2018-11-12 22:30 | NUR ---
PT BACK ON THE FLOOR.
[2018-11-13] VITALS: BP 125/71
--- NOTE | 2018-11-13 | NUR ---
PT SLEEPING COMFORTABLY BUT AROUSABLE FOR VS. NO S/S OF DISTRESS NOTED. NO COMPLAINTS OF PAIN. NO SOB ON 2L O2 VIA NC. AFEBRILE. WILL CONTINUE TO MONITOR.
--- NOTE | 2018-11-13 01:20 | NUR ---
PT SLEEPING COMFORTABLY IN BED. NO S/S OF DISTRESS NOTED. WILL CONTINUE TO MONITOR.
--- NOTE | 2018-11-13 03:00 | NUR ---
PT LINEN CHANGED. NO S/S OF DISTRESS NOTED. WILL CONTINUE TO MONITOR.
[2018-11-13 04:00] VITALS: BP 119/69
[2018-11-13] MEDS: PIPER/TAZO 2.25GM/D5W PREMIX 50 ML IV SCH ×3 (04:34→20:43)
--- NOTE | 2018-11-13 04:34 | NUR ---
IAM HUNG AND RUNNING. PT TOLERATING WELL.
--- NOTE | 2018-11-13 05:15 | NUR ---
PT REFUSED LAB DRAWS. NOTIFIED.
--- NOTE | 2018-11-13 06:27 | NUR ---
SYNTHROID NOT AVAILABLE TO PULL OUT OF THE PYXIS DUE TO HARDWARE ERROR. CALLED [facility]@[phone] AND WAS TOLD TO WAIT FOR ON SITE PHARMACIST TO ASSIST PULLING OUT THE MEDICATION. WILL ENDORSE TO MORNING SHIFT TO GIVEN SYNTHROID.
--- NOTE | 2018-11-13 07:14 | NUR ---
RECEIVED REPORT FROM CROCHETER HAND NURSE FOR CONTINUITY OF CARE. PT IN STABLE CONDITION. RESPIRATIONS EVEN AND UNLABORED. SKIN INTACT. IV INTACT AND PATENT. BED IN LOW POSITION. BED ALARM ON. CALL LIGHT AT BEDSIDE. WILL CONTINUE TO MONITOR.
--- NOTE | 2018-11-13 07:14 | NUR ---
REPORT GIVEN TO AM NURSE AT BEDSIDE. PT IN STABLE CONDITION.
[2018-11-13] MEDS: ALBUTEROL SULFATE/IPRATROPIU 3 ML SOL IH SCH ×4 (07:16→20:30)
--- NOTE | 2018-11-13 07:35 | NUR ---
PT REFUSED TO USE TRACTOR TRAILER TRUCK DRIVER PHONE. MARY ANN MAS AT BEDSIDE SPEAKING WITH PT AT THIS TIME. FAMILY AT BEDSIDE. WILL CONTINUE TO MONITOR.
[2018-11-13 08:00] VITALS: BP 109/79
--- NOTE | 2018-11-13 08:38 | NUR ---
PLACE PT ON BEDPAN AND CLEANED AFTER FOR SMALL BOWEL MOVEMENT. PT IN STABLE CONDITION. BED IN LOW POSITION. BED ALARM ON. CALL LIGHT AT BEDSIDE. WILL CONTINUE TO MONITOR.
[2018-11-13] MEDS: AMIODARONE 200 MG TAB PO SCH ×3 (09:00→21:28)
--- NOTE | 2018-11-13 09:40 | NUR ---
GAVE ORDERED DUE MEDICATIONS AT THIS TIME. PT TOLERATED WELL. FAMILY AT BEDSIDE AT THIS TIME. BED IN LOW POSITION. BED ALARM ON. CALL LIGHT AT BEDSIDE. WILL CONTINUE TO MONITOR.
[2018-11-13] MEDS: ASPIRIN 81 MG TAB.CHEW PO SCH (09:55)
[2018-11-13] MEDS: METOPROLOL 25 MG TAB PO SCH ×2 (09:55→21:28)
[2018-11-13] MEDS: ATORVASTATIN 20 MG TAB PO SCH (09:56)
[2018-11-13] MEDS: LEVOTHYROXINE 0.025 MG TAB PO SCH (10:08)
[2018-11-13] MEDS: FUROSEMIDE 40 MG/4 ML VIAL IVP SCH ×2 (10:09→21:29)
--- NOTE | 2018-11-13 11:15 | NUR ---
SPONGE BATH, BED LINEN AND GOWN CHANGE AT THIS TIME. PT TOLERATED WELL WILL CONTINUE TO MONITOR.
[2018-11-13 12:00] VITALS: BP 122/79
--- NOTE | 2018-11-13 12:25 | NUR ---
PT REFUSED TO EAT AT THIS TIME. PT WAS SNACKING ON CHEESE AND WAS DRINKING A NUTRITION SHAKE AROUND 10AM. RESPIRATIONS EVEN AND UNLABORED. CALL LIGHT AT BEDSIDE. BED IN LOW POSITION. BED ALARM ON. WILL CONTINUE TO MONITOR.
--- NOTE | 2018-11-13 13:39 | NUR ---
SPOKE WITH PATIENT'S DAUGHTER SCOT THAT IF SHE IS AGREED FOR HER FATHER TO GO TO SNF FOR IV ABX AND PT , PER SCOT SHE IS AGREED FOR HER DAD TO GO TO SNF. CALLED [employer] SPOKE WITH DEVIN PAINTING FOR AUTH # SHE WILL FAX THE CONTRACTED SNF WITH [facility].
--- NOTE | 2018-11-13 14:40 | NUR ---
FAXED ALL PAPER WORK TO [facility] [phone] AND FABIÁN GASPAR [phone] SPOKE WITH BRAINA [phone] SHE WILL REVIEW THE CASE AND WILL CALL US BACK
--- NOTE | 2018-11-13 15:18 | NUR ---
PT LYING IN BED SLEEP AT THIS TIME. RESPIRATIONS EVEN AND UNLABORED. CALL LIGHT AT BEDSIDE. BED IN LOW POSITION. BED ALARM ON. WILL CONTINUE TO MONITOR.
--- NOTE | 2018-11-13 15:53 | NUR ---
DOT FROM [facility] CALLED BACK STATED SHE HAS NO BED TODAY BUT WILL HAVE DISCHARGES TOMORROW AND WILL CALL US BACK
[2018-11-13 16:00] VITALS: BP 116/74
--- NOTE | 2018-11-13 16:12 | NUR ---
[facility] CALLED AND STATED WILL TAKE THE PATIENT.CALLED [facility] SPOKE WITH MARY ANNE NOTIFIED HER THAT [facility] WILL ACCEPT THE PATIENT AND NEEDS AUTHORIZATION, PER MARY ANNE SHE IS WORKING ON IT
--- NOTE | 2018-11-13 19:26 | NUR ---
GAVE REPORT TO INSOLE STIFFENER NURSE DENNIS FOR CONTINUITY OF CARE. PT IN STABLE CONDITION
--- NOTE | 2018-11-13 19:27 | NUR ---
RECEIVED BEDSIDE REPORT FROM GEREMIAS NORTH. PT A/O X4. DISCUSSED PLAN OF CARE WITH PT. FAMILY AT BEDSIDE. ASSISTED WITH TRANSLATING. EXPERIMENTAL ROCKETSLED MECHANIC PHONE AT BEDSIDE. PT STATES HE DOESN'T LIKE TO USE IT. STD PRECAUTIONS. FALL PRECAUTIONS IN PLACE. DENIES PAIN. NO SIGNS OF RESP DISTRESS. NC @2L. SKIN NON INTACT. SCABS ON INNER KNEES. DRESSINGS CLEAN DRY AND INTACT. L AC 20G NS @10. R FA 22G SL. IV SITES PATENT AND INTACT. CONDOM CATH NOT IN USE AT THE MOMENT. PT STATES HE DOESN'T NEED IT, HE USES URINAL. 170 CC URINE EMPTIED FROM URINAL. BED IN LOW POSITION. CALL LIGHT WITHIN REACH. FAMILY AT BEDSIDE. WILL CONTINUE TO MONITOR.
[2018-11-13 20:00] VITALS: BP 114/74
[2018-11-13] MEDS ORDERED: APIXABAN 2.5 MG TAB PO SCH (21:00)
--- NOTE | 2018-11-13 21:00 | NUR ---
ADMINISTERED MEDS SCHEDULED. EDUCATED ON SIDE EFFECTS. TOLERATED WELL. ATTEMPTED TO COLLECT SPUTUM. COUGH IS UNPRODUCTIVE. UNABLE TO COLLECT SPUTUM CULTURE. WILL CONTINUE TO MONITOR.
[2018-11-13] MEDS: APIXABAN 2.5 MG TAB PO SCH (21:37)
--- NOTE | 2018-11-13 21:38 | NUR ---
MADE MD AWARE OF HIGH LEVEL CR 2.4 AND CURRENT ORDER OF ELIQUIS 5MG PO BID. NEW SCHEDULED ELIQUIS PO BID ORDER CHANGED FROM 5MG TO 2.5MG DUE TO HIGH CR 2.4.
--- NOTE | 2018-11-13 23:30 | NUR ---
ASSISTED TO USE BEDPAN. PT UNABLE TO USE RESTROOM AT THIS TIME. PERFORMED JANELLE CARE. TOLERATED WELL. UNABLE TO COLLECT OCCULT BLOOD AT THIS MOMENT. BED IN LOW POSITION. WILL CONTINUE TO MONITOR.
[2018-11-14] VITALS: BP 119/77
--- NOTE | 2018-11-14 01:00 | NUR ---
PT SLEEPING IN BED EASILY AROUSABLE. EVEN CHEST RISE. NO SIGNS OF DISTRESS. WILL CONTINUE TO MONITOR.
--- NOTE | 2018-11-14 03:03 | NUR ---
PT REQUESTED ANOTHER WARM BLANKET. DENIES PAIN. NO COMPLAINTS AT THIS TIME. WILL CONTINUE TO MONITOR.
[2018-11-14 04:00] VITALS: BP 113/78
[2018-11-14] MEDS: PIPER/TAZO 2.25GM/D5W PREMIX 50 ML IV SCH ×3 (04:16→19:55)
[2018-11-14] MEDS: FUROSEMIDE 40 MG/4 ML VIAL IVP SCH ×3 (04:17→21:00)
--- NOTE | 2018-11-14 04:22 | NUR ---
ADMINISTERED MEDS SCHEDULED. EDUCATED ON SIDE EFFECTS. TOLERATED WELL. VITALS TAKEN. VITALS WNL. NO SIGNS OF DISTRESS. NO PAIN REPORTED. WILL CONTINUE TO MONITOR.
--- NOTE | 2018-11-14 05:49 | NUR ---
PT REFUSED MORNING LAB DRAW. WILL CONTINUE TO MONITOR.
[2018-11-14] MEDS: LEVOTHYROXINE 0.025 MG TAB PO SCH (06:30)
[2018-11-14 06:44] LABS: BASOPHILS # (AUTO) 0.1 K/uL (0.00-0.22); BASOPHILS % (AUTO) 1.4 % (0.0-2.0); EOSINOPHILS # (AUTO) 0.4 K/uL (0-0.4); EOSINOPHILS % (AUTO) 4.4 % (0.0-4.0); HEMATOCRIT 29.5 % (36-52); HEMOGLOBIN 9.9 g/dL (12.0-18.0); LYMPHOCYTES % (AUTO) 11.3 % (20.5-51.1); MEAN CORPUSCULAR HEMOGLOBIN 32 pg (27-31); MEAN CORPUSCULAR HGB CONC 34 g/dL (33-37); MEAN CORPUSCULAR VOLUME 93.7 fL (80-94); MONOCYTES # (AUTO) 1.2 K/uL (0.8-1.0); MONOCYTES % (AUTO) 13.6 % (1.7-9.3); NEUTROPHILS % (AUTO) 69.3 % (42.2-75.2); PLATELET COUNT (AUTO) 253 K/uL (140-450); RED BLOOD CELL COUNT(AUTO) 3.15 MIL/uL (4.20-6.10); RED CELL DISTRIBUTION WIDTH 18.4 % (11.6-13.7); WHITE BLOOD COUNT (AUTO) 8.6 K/uL (4.8-10.8)
[2018-11-14 07:09] LABS: ANION GAP 12.4 (8-16); CARBON DIOXIDE 29.6 mmol/L (21-32); CHLORIDE 99 mmol/L (98-107); CREATININE 2.2 mg/dL (0.7-1.3); GLUCOSE 91 mg/dL (74-106); SODIUM SERUM 138 mmol/L (136-145); UREA NITROGEN, BLOOD 25 mg/dL (7-18)
--- NOTE | 2018-11-14 07:09 | NUR ---
WILL ENDORSE PT TO DAYSHIFT RN. PT IN STABLE CONDITION.
--- NOTE | 2018-11-14 07:10 | NUR ---
GAVE REPORT TO BUS MECHANIC NURSE DENNIS FOR CONTINUITY OF CARE. PT IN STABLE CONDITION. RESPIRATIONS EVEN AND UNLABORED. IV INTACT AND PATENT. SAFETY MEASURES IN PLACE. CALL LIGHT AT BEDSIDE . BED ALARM ON. BED IN LOW POSITION. WILL CONTINUE TO MONITOR. Addendum: 11/14/18 at 0852 by Ирина Novak RN RECEIVED REPORT.
[2018-11-14] MEDS: ALBUTEROL SULFATE/IPRATROPIU 3 ML SOL IH SCH ×4 (07:30→19:56)
[2018-11-14 08:00] VITALS: BP 122/72
[2018-11-14 08:41] LABS: MAGNESIUM 2.1 mg/dL (1.8-2.4); PHOSPHORUS 4.9 mg/dL (2.5-4.9)
--- NOTE | 2018-11-14 08:48 | NUR ---
I RECEIVED A CALL FROM VICKI FROM [employer] AUTHORIZATION FOR SKILLED [phone] AND FOR TRANSPORT [facility] AUTH# [id number]. CALLED [place] [facility] SPOKE WITH BREANNE PROVIDE THE AUTH # AND SHE WILL CALL BACK FOR ROOM
[2018-11-14] MEDS: APIXABAN 2.5 MG TAB PO SCH (09:00)
[2018-11-14] MEDS: ASPIRIN 81 MG TAB.CHEW PO SCH (09:02)
[2018-11-14] MEDS: AMIODARONE 200 MG TAB PO SCH ×2 (09:03→21:00)
[2018-11-14] MEDS: METOPROLOL 25 MG TAB PO SCH ×2 (09:03→21:00)
--- NOTE | 2018-11-14 09:03 | NUR ---
[facility] AND [facility] CAN GO TO ROOM 102-2 WILL ARRANGE TRANSPORT WHEN THE DISCHARGE ORDER PLACED
[2018-11-14] MEDS: ATORVASTATIN 20 MG TAB PO SCH (09:04)
--- NOTE | 2018-11-14 09:07 | NUR ---
GAVE ORDERED DUE MEDICATIONS AT THIS TIME. FAMILY AT BEDSIDE. PT TOLERATED WELL. CALL LIGHT AT BEDSIDE. BED IN LOW POSITION. BED ALARM ON. WILL CONTINUE TO MONITOR.
[2018-11-14] MEDS ORDERED: POTASSIUM CHLORIDE 40 MEQ, LIDOCAINE 1% 25 MG in NACL 0.9% 250 ML IV SCH (10:00)
--- NOTE | 2018-11-14 10:01 | NUR ---
CALLED [facility] AND TOLD BREANNE THAT PATIENT WILL BE DISCHARGE TOMORROW AND PROVIDE HER THE FLOOR NUMBER [phone] TO SPEAK WITH CHARGE NURSE
--- NOTE | 2018-11-14 11:01 | NUR ---
ASSISTED WITH BEDPAN FOR URINATION PERFORMED JANELLE CARE. PT TOLERATED WELL. BED IN LOW POSITION. BED ALARM ON. CALL LIGHT AT BEDSIDE. WILL CONTINUE TO MONITOR.
[2018-11-14 12:00] VITALS: BP 123/64
--- NOTE | 2018-11-14 13:33 | NUR ---
ASSISTED WITH BEDPAN FOR URINATION PERFORMED JANELLE CARE. PT TOLERATED WELL. BED IN LOW POSITION. BED ALARM ON. CALL LIGHT AT BEDSIDE. WILL CONTINUE TO MONITOR.
--- NOTE | 2018-11-14 15:16 | NUR ---
LEONARD called patient's child, Rachele Holland [phone], to let her know that patient will be going to [facility] tomorrow. Patient verbalized appreciation and understanding. SW/CM will follow up as needed. Addendum: 11/14/18 at 1517 by Eddie Gagnon SS LEONARD called patient's daughter, Rachele Holland [phone], to let her know that patient will be going to [facility] tomorrow. Patient's daughter verbalized appreciation and understanding. LEONARD/CM will follow up as needed.
--- NOTE | 2018-11-14 15:45 | NUR ---
PT LYING IN BED SLEEP AT THIS TIME. RESPIRATIONS EVEN AND UNLABORED. BED IN LOW POSITION. BED ALARM ON. CALL LIGHT AT BEDSIDE. WILL CONTINUE TO MONITOR.
[2018-11-14 16:00] VITALS: BP 101/61
--- NOTE | 2018-11-14 17:16 | NUR ---
ASSISTED WITH BEDPAN FOR BOWEL MOVEMENT, PERFORMED JANELLE CARE. PT TOLERATED WELL. BED IN LOW POSITION. BED ALARM ON. CALL LIGHT AT BEDSIDE. WILL CONTINUE TO MONITOR.
--- NOTE | 2018-11-14 19:22 | NUR ---
PT. AAOX4 , NOT IN RESPIRATORY DISTRESS , IV SITES INTACT AND PATENT , ON CARDIAC DIET, IVF INFUSING WELL , ON FALL RISK PRECAUTION PROTOCOL - BED ALARM ON ,CALL LIGHT WITHIN REACH , BED IN LOW POSITION , SIDERAILS UPX2 , WILL CONTINUE TO MONITOR.
--- NOTE | 2018-11-14 19:22 | NUR ---
GAVE REPORT TO STACKER NURSE MIKAELA FOR CONTINUITY OF CARE. PT IN STABLE CONDITION.
[2018-11-14 20:00] VITALS: BP 90/54
--- NOTE | 2018-11-14 21:00 | NUR ---
BP STILL 90/54MMHG , ALERT AND ORIENTED , NOT IN DISTRESS IN THIS TIME , REFERRED TO MYNOR CARRANZA DUE TO LOW BP , DUE LASIX, CARDORONE ,AND LOPRESSOR HOLD ORDERED. WILL CONTINUE TO MONITOR.BLANCA LIGHT WITH IN REACH.
--- NOTE | 2018-11-14 22:00 | NUR ---
MADE ROUNDS ,PT. RESTING ON BED NO DISTRESS NOTED ON THIS TIME.CALL LIGHT WITHIN REACH.
[2018-11-15] VITALS: BP_SYST 100; BP_SYST 85; BP_DIAS 35; BP_DIAS 60
--- NOTE | 2018-11-15 | NUR ---
MADE ROUNDS PT IS NOT ON DISTRESS, IVF INFUSING WELL ,V/S TAKEN , CALL LIGHT WITHIN REACH , VOIDED FREELY PER URINAL , WILL CONTINUE TO MONITOR.
[2018-11-15 04:00] VITALS: BP 90/60
--- NOTE | 2018-11-15 04:00 | NUR ---
VS TAKE BP STILL 90/60 -MYNOR INFORMED ,WILL CONTINUE TO MONITOR
[2018-11-15] MEDS: FUROSEMIDE 40 MG/4 ML VIAL IVP SCH (05:00)
--- NOTE | 2018-11-15 05:00 | NUR ---
HOLD LASIX OREDERED BY MYNOR - BP 90/60 , CALL LIGHT WITHIN REACH ,WILL CONTINUE TO MONITOR.
[2018-11-15] MEDS: PIPER/TAZO 2.25GM/D5W PREMIX 50 ML IV SCH ×2 (05:30→13:33)
--- NOTE | 2018-11-15 06:00 | NUR ---
MADE ROUNDS ,PT RESTING ON BED ,NOT IN DISTRESS , CALL LIGHT WITHIN REACH ,WILL CONT. TO MONITOR.
[2018-11-15] MEDS ORDERED: FURO-572 PO (06:31)
[2018-11-15] MEDS ORDERED: APIX2.5 PO (06:31)
[2018-11-15] MEDS ORDERED: ZOS2.25I IV (06:36)
[2018-11-15] MEDS ORDERED: INUL1CTB PO (06:36)
--- NOTE | 2018-11-15 07:25 | NUR ---
ENDORSED TO AM SHIFT FOR CONTINUITY OF CARE.
--- NOTE | 2018-11-15 07:25 | NUR ---
RECEIVED REPORT FROM FOOD CRITIC NURSE. PATIENT LYING DOWN IN BED WATCHING TV. NO DISTRESS NOTED. DENIES ANY PAIN. AAOX4, CALM, COOPERATIVE, SKIN COLOR APPROPRIATE TO ETHNICITY, WARM TO TOUCH. 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 RESPIRATIONS EVEN, UNLABORED, ON ROOM AIR. IV SITES INTACT, PATENT, AND ON SALINE LOCK. REVIEWED PLAN OF CARE WITH PATIENT. PATIENT VERBALIZED UNDERSTANDING. SAFETY MEASURES IN PLACE, CALL LIGHT WITHIN REACH. WILL CONTINUE TO MONITOR.
[2018-11-15 08:00] VITALS: BP 132/65
[2018-11-15] MEDS: LEVOTHYROXINE 0.025 MG TAB PO SCH (08:08)
[2018-11-15] MEDS ORDERED: FUROSEMIDE 40 MG/4 ML VIAL IVP SCH (09:00)
[2018-11-15] MEDS ORDERED: POTASSIUM CHLORIDE 40 MEQ, LIDOCAINE MPF 1% - 5 mL VIAL 25 MG in NACL 0.9% 250 ML IV SCH (09:00)
--- NOTE | 2018-11-15 09:02 | NUR ---
CALLED [facility] [place] 2[place] TO CONFIRM ROOM 102-2, THEY CAN TAKE PT AFTER 1430, [facility]SPORT [facility]ARO ARRANGED FOR 1430 CALL CENTER DIRECTOR.
[2018-11-15] MEDS: ASPIRIN 81 MG TAB.CHEW PO SCH (09:27)
[2018-11-15] MEDS: ATORVASTATIN 20 MG TAB PO SCH (09:27)
[2018-11-15] MEDS: AMIODARONE 200 MG TAB PO SCH (09:27)
[2018-11-15] MEDS: METOPROLOL 25 MG TAB PO SCH (09:28)
--- NOTE | 2018-11-15 09:43 | NUR ---
PATIENT LYING DOWN IN BED. NO DISTRESS NOTED. DENIES ANY PAIN. SCHEDULED MEDICATIONS DUE GIVEN. WILL CONTINUE TO MONITOR.
[2018-11-15] MEDS: ALBUTEROL SULFATE/IPRATROPIU 3 ML SOL IH SCH (11:09)
[2018-11-15 13:12] LABS: ANION GAP 10.4 (8-16); CARBON DIOXIDE 31.6 mmol/L (21-32); CHLORIDE 100 mmol/L (98-107); CREATININE 2.2 mg/dL (0.7-1.3); GLUCOSE 108 mg/dL (74-106); SODIUM SERUM 138 mmol/L (136-145); UREA NITROGEN, BLOOD 24 mg/dL (7-18)
--- NOTE | 2018-11-15 13:48 | NUR ---
PATIENT LYING DOWN IN BED COMFORTABLY. NO DISTRESS NOTED. SCHEDULED MEDICATIONS DUE GIVEN. WILL CONTINUE TO MONITOR.
--- NOTE | 2018-11-15 14:15 | NUR ---
DISCHARGED INSTRUCTIONS PROVIDED TO PATIENT USING MONGOLIAN ZANJERO ON THE PHONE #[phone]. INSTRUCTIONS ON TRANSFER TO [facility] FOR CONTINUED IV ANTIBIOTICS AND PHYSICAL THERAPY PROVIDED, DIET REGIMEN, NEW/CHANGED MEDICATION REGIMEN AND TO FOLLOW-UP WITH DR. MELCHOR AT [facility]. ANSWERED ALL OF PATIENT'S QUESTIONS REGARDING TRANSFER. PATIENT VERBALIZED UNDERSTANDING. CALLED [facility] AND GAVE REPORT TO CYDNEY HERNANDEZ. ANSWERED ALL OF RN'S QUESTIONS REGARDING TRANSFER. NOTIFIED DAVID THAT PICKUP TIME IS SCHEDULED AT 1430 BY [facility]. RN AWAITING FOR PATIENT TO ARRIVE. CALLED SCOT STEWART, PATIENT DAUGHTER, AND NOTIFIED HER OF PAT[facility] AROUND 1430. DAUGHTER VERBALIZED UNDERSTANDING.
--- NOTE | 2018-11-15 14:45 | NUR ---
[facility] ON UNIT READY TO TAKE PATIENT TO [facility]. IV TUBES DISCONNECTED. ID BANDS REMOVED. PATIENT TRANSFERRED TO SNF AT THIS TIME IN STABLE CONDITION.
== END 2018-11-15 15:16 | DRG 190 ==
LOC: MED 23:04 → MTU 11-10 00:51 → INTOOBSV 11-10 00:51 → UNDOADMOB 11-10 00:51 → UNDOADMIN 11-10 01:08 → MTU 11-10 01:08 → UNDOADMOB 11-10 01:08 → MTU 11-10 01:08 → OBSVTOIN 11-10 08:48 → INTOOBSV 11-10 08:48 → OBSVTOIN 11-10 08:58
PROVIDERS: ADMIT General Practice; ATTEND General Practice
DX: I21.A1 Myocardial infarction type 2 (principal); J69.0 Pneumonitis due to inhalation of food and vomit; J96.01 Acute respiratory failure with hypoxia; N17.0 Acute kidney failure with tubular necrosis; I50.43 Acute on chronic combined systolic (congestive) and diastolic (congestive) heart failure; K85.90 Acute pancreatitis without necrosis or infection, unspecified; N18.3 Chronic kidney disease, stage 3 (moderate); K21.9 Gastro-esophageal reflux disease without esophagitis; E78.5 Hyperlipidemia, unspecified; I25.10 Atherosclerotic heart disease of native coronary artery without angina pectoris; I48.91 Unspecified atrial fibrillation; D64.9 Anemia, unspecified; N26.1 Atrophy of kidney (terminal); I13.0 Hypertensive heart and chronic kidney disease with heart failure and stage 1 through stage 4 chronic kidney disease, or unspecified chronic kidney disease; E87.6 Hypokalemia; E05.90 Thyrotoxicosis, unspecified without thyrotoxic crisis or storm; Z95.1 Presence of aortocoronary bypass graft; Z79.82 Long term (current) use of aspirin; Z79.899 Other long term (current) drug therapy; Z86.73 Personal history of transient ischemic attack (TIA), and cerebral infarction without residual deficits; Z87.891 Personal history of nicotine dependence
CPT/HCPCS: 96365; 99285; G0378; 36415; 36600; 71045; 71250; 76604; 76700; 76770; 78582; 80048; 80053; 81001; 82272; 82803; 83036; 83605; 83690; 83735; 83880; 84100; 84439; 84443; 84484; 85025; 85379; 85610; 85730; 87040; 87081; 87086; 87205; 93005; 93308; 93970; 94640; 97110; 97116; 97161-GP; 97530; J1644; J1940; J2001; J2543; J3370; J3480; J7030; J7060; J7620; Q0092

== ENCOUNTER 2019-01-23 19:01 | Inpatient (IN) | payer OTHER ==
[~2019-01-23] VITALS: Ht 152.4 cm; Wt 51.7 kg
[~2019-01-23 19:01] MED LIST: ALBU0.0912 IH; AMIO200T5 PO; APIX2.5 PO; ASPI-1718 PO; ATOR40TA PO; DOCU100C15 PO; FOLI1TAB90 PO; FURO-572 PO; INUL1CTB PO; IPRA12.9 IH; METO25TA PO; PANT20EC12 PO; POTA10TE30 PO; ZOS2.25I IV
[2019-01-23 19:10] VITALS: BP 114/72
--- NOTE | 2019-01-23 19:43 | NUR ---
PT WHEEL CHAIR ASSISTED TO BED 2. ACCOMPANIED BY SON.
[2019-01-23 19:48] LABS: BASOPHILS # (AUTO) 0.1 K/uL (0.00-0.22); BASOPHILS % (AUTO) 0.5 % (0.0-2.0); EOSINOPHILS % (AUTO) 0.2 % (0.0-4.0); HEMATOCRIT 37.3 % (36-52); HEMOGLOBIN 12.2 g/dL (12.0-18.0); LYMPHOCYTES # (AUTO) 1.7 K/uL (2.0-11.5); LYMPHOCYTES % (AUTO) 14.2 % (20.5-51.1); MEAN CORPUSCULAR HEMOGLOBIN 30 pg (27-31); MEAN CORPUSCULAR HGB CONC 33 g/dL (33-37); MEAN CORPUSCULAR VOLUME 91.2 fL (80-94); MONOCYTES # (AUTO) 1.2 K/uL (0.8-1.0); MONOCYTES % (AUTO) 10.4 % (1.7-9.3); NEUTROPHILS # (AUTO) 8.7 K/uL (1.8-7.7); NEUTROPHILS % (AUTO) 74.7 % (42.2-75.2); PLATELET COUNT (AUTO) 326 K/uL (140-450); RED BLOOD CELL COUNT(AUTO) 4.09 MIL/uL (4.20-6.10); RED CELL DISTRIBUTION WIDTH 17.1 % (11.6-13.7); WHITE BLOOD COUNT (AUTO) 11.7 K/uL (4.8-10.8)
--- NOTE | 2019-01-23 20:10 | NUR ---
ERMD AT BEDSIDE.
--- NOTE | 2019-01-23 20:19 | NUR ---
79 Y/O MALE BIB BY SON C/OSOB, COUGH,WATER IN HIS LUNGS, LOSS OF APPETITE FOR 10 DAYS AGO. HIS SON TOOK HIM TO HIS PRIMARY DOCTOR 3 DAYS AGO AND WAS TOLD TO COME TO [place] ER IF SYMPTOMS GET WORSE. PT. RR 31; PUT ON 2L N/C. CRACKLES HEARD ON UPPER LUNGS BILATERALLY. +2 PITTING EDEMA NOTED ON ANKLES BILATERALLY. PATIENT IS QUIETLY IN BED WITH SON AT BEDSIDE. PMH:PNA SURGICAL HX: QUADRUPAL BYPASS RX:SEE MED REC.
--- NOTE | 2019-01-23 20:19 | NUR ---
Note undone in EDM - 01/23/19 at 2058 by STACIE 79 Y/O MALE BIB BY SON C/OSOB, COUGH,WATER IN HIS LUNGS, LOSS OF APPETITE FOR 10 DAYS AGO. HIS SON TOOK HIM TO HIS PRIMARY DOCTOR 3 DAYS AGO AND WAS TOLD TO COME TO [place] ER IF SYMPTOMS GET WORSE. PT. RR 31; PUT ON 2L N/C. CRACKLES HEARD ON UPPER LUNGS BILATERALLY. +2 PITTING EDEMA NOTED ON ANKLES BILATERALLY. PATIENT IS QUIETLY IN BED WITH SON AT BEDSIDE. PMH:PNA SURGICAL HX: QUADRUPAL BYPASS
[2019-01-23 20:38] LABS: ANION GAP 13.4 (8-16); CARBON DIOXIDE 27.6 mmol/L (21-32); CHLORIDE 100 mmol/L (98-107); CREATININE 1.6 mg/dL (0.7-1.3); GLUCOSE 123 mg/dL (74-106); SODIUM SERUM 138 mmol/L (136-145); TOTAL BILIRUBIN 1.1 mg/dL (0.0-1.0); UREA NITROGEN, BLOOD 41 mg/dL (7-18)
[2019-01-23 20:39] LABS: ALBUMIN 2.8 g/dL (3.4-5.0); ASPARTATE AMINOTRANSFERASE 89 U/L (15-37)
[2019-01-23] MEDS ORDERED: FUROSEMIDE 40 MG/4 ML VIAL IVP ONE (21:10)
[2019-01-23] MEDS ORDERED: ONDANSETRON 4 MG/2 ML VIAL IM/IVP PRN (21:40)
[2019-01-23] MEDS ORDERED: DOCUSATE SODIUM 100 MG GELCAP PO PRN (21:40)
[2019-01-23] MEDS ORDERED: LORazepam 2 MG/ML VIAL IM/IVP PRN (21:40)
[2019-01-23] MEDS ORDERED: MORPHINE SULFATE 2 MG/ML SYR IVP PRN (21:40)
[2019-01-23] MEDS ORDERED: HYDROcodone/APAP 7.5/325 MG 1 TAB PO PRN (21:40)
[2019-01-23] MEDS ORDERED: ACETAMINOPHEN 325 MG TAB PO PRN (21:40)
[2019-01-23] MEDS ORDERED: FAMOTIDINE 20 MG/2 ML VIAL IV PRN (21:40)
[2019-01-23] MEDS ORDERED: MELATONIN 3 MG TAB PO PRN (21:45)
[2019-01-23] MEDS ORDERED: MEDICATION REC. PHARMACY CONS. 1 EA MISC MC PRN (21:45)
[2019-01-23] MEDS ORDERED: POTASSIUM CHLORIDE 40 MEQ, LIDOCAINE MPF 1% - 5 mL VIAL 25 MG in NACL 0.9% 250 ML IV SCH (22:00)
[2019-01-23] MEDS ORDERED: ALBUTEROL SULFATE/IPRATROPIU 3 ML SOL IH PRN (22:15)
[2019-01-23] MEDS ORDERED: POTA10TE30 PO (22:20)
[2019-01-23] MEDS ORDERED: PARO20TA13 PO (22:20)
[2019-01-23 22:44] LABS: APPEARANCE,URINE CLEAR (CLEAR); BILIRUBIN,URINE NEGATIVE (NEGATIVE); BLOOD, URINE NEGATIVE (NEGATIVE); COLOR,URINE YELLOW (YELLOW); LEUKOCYTE ESTERASE ,URINE NEGATIVE (NEGATIVE); NITRITE, URINE NEGATIVE (NEGATIVE); PH,URINE 5.5 (5.0-9.0); UGLUCOSE NEGATIVE (NEGATIVE)
[2019-01-23 22:47] LABS: PROTHROMBIN TIME 12.7 secs (10.8-13.4)
--- NOTE | 2019-01-23 22:49 | NUR ---
Patient will be admitted to care of [facility]. Admited to TELE. Will go to room 124 B Belongings list completed. Report to SEPTEMBER CYDNEY
--- NOTE | 2019-01-23 22:55 | NUR ---
RECEIVED REPORT FROM ER NURSE. PT AWAKE, ALERT AND ORIENTED X4. ABLE TO FOLLOW COMMANDS. PT IS URDU SPEAKING. VISIBLE CHEST RISE AND FALL ON 2L N.C, O2 SATURATION 96%. NO VISIBLE SIGNS OF DISTRESS. RIGHT WRIST 22G INTACT AND PATENT WITH SALINE FLUSH. SKIN INTACT. ABLE TO AMBULATE, STEADY GAIT. SOCKS REPLACED WITH NON-SLIP FOR FALL PREVENTION. URINAL PLACED AT BEDSIDE. CALL LIGHT WITHIN REACH. WILL CONTINUE TO MONITOR.
[2019-01-23 22:58] LABS: CHOL/HDL RATIO 6.2 (1-4.5); FREE T4 (FREE THYROXINE) 1.53 ng/dL (0.76-1.46); MAGNESIUM 2.2 mg/dL (1.8-2.4); PHOSPHORUS 4.5 mg/dL (2.5-4.9); THYROID STIMULATING HORMONE 2.58 uIU/mL (0.34-3.74)
[2019-01-23] MEDS ORDERED: METOPROLOL 25 MG TAB PO SCH (23:00)
[2019-01-23] MEDS ORDERED: AMIODARONE 200 MG TAB PO SCH (23:00)
--- NOTE | 2019-01-23 23:00 | NUR ---
LAB CALLED TO REPORT LACTIC ACID LEVEL 2.3. REPORTED TO RESIDENT MD ROGERS.
[2019-01-23] MEDS ORDERED: KCL 20 MEQ/WATER INJ PREMIX 200 ML IV SCH (23:30)
[2019-01-24] VITALS: BP 121/81
--- NOTE | 2019-01-24 | NUR ---
VITALS TAKEN. PT ASSISTED TO THE BATHROOM AND BACK TO BED. PT ENCOURAGED TO USE URINAL, TO PREVENT SOB.
[2019-01-24] MEDS: DEXT 5% /NACL 0.9% 1,000 ML IV SCH ×2 (00:14→23:00)
[2019-01-24] MEDS: PIPERACILLIN/TAZOBACTAM 2.25 GM in DEXTROSE 5% 50 ML IV SCH ×4 (00:26→18:20)
[2019-01-24] MEDS ORDERED: PIPERACILLIN/TAZOBACTAM 2.25 GM VIAL IV ONE ×2 (00:28→05:49)
--- NOTE | 2019-01-24 02:36 | NUR ---
PT ASKING FOR WATER. DIRECTOR TITLE USED VIA [employer] TO EXPLAIN RATIONAL FOR NPO STATUS. PER DR. ROGERS, OKAY FOR PT TO HAVE ICE CHIPS. PT VERBALIZED UNDERSTANDING.
[2019-01-24 04:00] VITALS: BP 121/67
--- NOTE | 2019-01-24 04:00 | NUR ---
VITALS TAKEN. PT SITTING UP WITHOUT OXYGEN ON, BREATHING VISIBLY LABORED. ASSISTED PT TO PLACE NASAL CANNULA. CALLED RT FOR BREATHING TX.
--- NOTE | 2019-01-24 05:49 | NUR ---
ANTIBIOTICS HUNG. PT SLEEPING IN BED. VISIBLE CHEST RISE AND FALL ON 2L O2 N.C. NO VISIBLE SIGNS OF DISTRESS. CALL LIGHT WITHIN REACH.
--- NOTE | 2019-01-24 07:30 | NUR ---
GOT BEDSIDE REPORT FROM LENS AND FRAMES PRESCRIPTION CLERK NURSE. PATIENT ON TELE MONITOR AND STANDARD PRECAUTIONS IN PLACE. PATIENT AAOX3, ON 2 L O2 NC, NO DISTRESS NOTED. PATIENT AMBULATORY, CONTINENT, AND SKIN INTACT. IV ON R WRIST 22G INFUSING NS AT 30, IV PATENT AND INTACT. BED IN LOW POSITION, CALL LIGHT WITHIN REACH, SIDE RAILS X2 UP
[2019-01-24] MEDS: ALBUTEROL SULFATE/IPRATROPIU 3 ML SOL IH SCH ×3 (07:40→19:09)
--- NOTE | 2019-01-24 07:40 | NUR ---
OROPHARYNX SUCTION FOR SCANT THICK YELLOW SECRETIONS INSUFFICIENT AMOUNT COLLECTED FOR SPUTUM SAMPLE ARCHITECTURAL MANAGER TO RE-ATTEMPT AT A LATER TIME
[2019-01-24 07:51] LABS: BASOPHILS # (AUTO) 0.1 K/uL (0.00-0.22); BASOPHILS % (AUTO) 0.6 % (0.0-2.0); EOSINOPHILS % (AUTO) 0.4 % (0.0-4.0); HEMATOCRIT 33.5 % (36-52); HEMOGLOBIN 11.1 g/dL (12.0-18.0); LYMPHOCYTES # (AUTO) 0.6 K/uL (2.0-11.5); LYMPHOCYTES % (AUTO) 5.4 % (20.5-51.1); MEAN CORPUSCULAR HEMOGLOBIN 30 pg (27-31); MEAN CORPUSCULAR HGB CONC 33 g/dL (33-37); MEAN CORPUSCULAR VOLUME 91.3 fL (80-94); MONOCYTES # (AUTO) 0.8 K/uL (0.8-1.0); MONOCYTES % (AUTO) 7.1 % (1.7-9.3); NEUTROPHILS # (AUTO) 9.5 K/uL (1.8-7.7); NEUTROPHILS % (AUTO) 86.5 % (42.2-75.2); PLATELET COUNT (AUTO) 276 K/uL (140-450); RED BLOOD CELL COUNT(AUTO) 3.66 MIL/uL (4.20-6.10); RED CELL DISTRIBUTION WIDTH 16.9 % (11.6-13.7)
[2019-01-24 08:00] VITALS: BP 106/73
[2019-01-24 08:05] LABS: ANION GAP 14.4 (8-16); CARBON DIOXIDE 27.9 mmol/L (21-32); CHLORIDE 101 mmol/L (98-107); CREATININE 1.6 mg/dL (0.7-1.3); GLUCOSE 128 mg/dL (74-106); POTASSIUM 3.3 mmol/L (3.5-5.1); SODIUM SERUM 140 mmol/L (136-145); UREA NITROGEN, BLOOD 40 mg/dL (7-18)
[2019-01-24] MEDS: METOPROLOL 25 MG TAB PO SCH ×2 (10:06→21:00)
[2019-01-24] MEDS: POTASSIUM CHLORIDE 10 MEQ TABER PO SCH (10:06)
[2019-01-24] MEDS: AMIODARONE 200 MG TAB PO SCH ×2 (10:06→21:00)
[2019-01-24] MEDS: PARoxetine 20 MG TAB PO SCH (10:06)
[2019-01-24] MEDS: FOLIC ACID 1 MG TAB PO SCH (10:07)
--- NOTE | 2019-01-24 10:27 | NUR ---
ADMINISTERED SCHEDULED MEDS. PATIENT TOLERATED WELL. WILL CONTINUE TO MONITOR
[2019-01-24] MEDS: FUROSEMIDE 20 MG/2 ML VIAL IVP SCH ×2 (10:38→21:00)
[2019-01-24] MEDS ORDERED: POTASSIUM CHLORIDE 10 MEQ TABER PO ONE (11:20)
--- NOTE | 2019-01-24 11:49 | NUR ---
PATIENT SITTING UP ON SIDE OF BED, ON 2 L O2 NC, NO DISTRESS NOTED
[2019-01-24 12:00] VITALS: BP 103/61
--- NOTE | 2019-01-24 13:19 | NUR ---
PATIENT SLEEPING ON RIGHT SIDE LYING POSITION, ON 2 L O2 NC, NO DISTRESS NOTED
--- NOTE | 2019-01-24 14:23 | NUR ---
PATIENT HAS BEEN SCREENED AND CATEGORIZED HIGH NUTRITION RISK. PATIENT WILL BE SEEN WITHIN 1-2 DAYS OF ADMISSION. 01/24/19 - 01/25/19 GAIL ROSE MBA, RD
--- NOTE | 2019-01-24 15:17 | NUR ---
PATIENT SLEEPING, ON 2 L O2 NC, NO DISTRESS NOTED
[2019-01-24 16:00] VITALS: BP 102/64
--- NOTE | 2019-01-24 16:51 | NUR ---
01/24/19 RD INITIAL ASSESSMENT COMPLETED PLEASE REFER TO NUTRITION ASSESSMENT UNDER CARE ACTIVITY FOR ESTIMATED NUTRITIONAL NEEDS. RD RECOMMENDATIONS: 1. WHEN MEDICALLY CLEARED FOR PO DIET, RECOMMEND CARDIAC DIET. 2. F/U 3-5 DAYS; MODERATE RISK GAIL ROSE MBA, RD
--- NOTE | 2019-01-24 17:15 | NUR ---
PATIENT AMBULATED TO RESTROOM WITH LITTLE ASSISTANCE
--- NOTE | 2019-01-24 19:05 | NUR ---
Gave bedside report to scrap metal burner nurse. Patient endorsed in stable condition
--- NOTE | 2019-01-24 19:06 | NUR ---
RECEIVED REPORT FROM AM NURSE. PT IN BED RECEIVING BREATHING TX. VISIBLE CHEST RISE AND FALL, NO DISTRESS NOTED. SON IN LAW AT BEDSIDE. RIGHT FA 22G INTACT AND INFUSING WELL. SAFETY MEASURES IN PLACE. URINAL AT BEDSIDE. CALL LIGHT WITHIN REACH.
[2019-01-24 20:00] VITALS: BP 92/52
--- NOTE | 2019-01-24 21:30 | NUR ---
HEPARIN ADMINISTERED, OTHER MEDICATIONS HELD. SPOKE WITH RESIDENT MD REGARDING PT BP AND HR. ORDERS TO HOLD MEDICATIONS FOR NOW AND CONTINUE TO MONITOR VITAL SIGNS.
--- NOTE | 2019-01-24 22:30 | NUR ---
PT WRAPPED IN IV TUBING AND HAS TAKEN OFF GOWN. PT DRESSED AND TUBING/LINES SORTED. PT PULLED UP IN BED AND ASSISTED IN COMFORTABLE POSITION.
[2019-01-25] VITALS: BP 125/68
--- NOTE | 2019-01-25 | NUR ---
VITALS TAKEN. PT SLEEPING, BREATHING EQUAL AND UNLABORED ON 2L N.C. CALL LIGHT WITHIN REACH.
[2019-01-25] MEDS: PIPERACILLIN/TAZOBACTAM 2.25 GM in DEXTROSE 5% 50 ML IV SCH ×4 (00:13→18:31)
--- NOTE | 2019-01-25 02:15 | NUR ---
ROUNDED ON PT. PT SLEEPING IN BED. VISIBLE CHEST RISE AND FALL ON 2L N.C. NO VISIBLE SIGNS OF DISTRESS.
[2019-01-25 04:00] VITALS: BP 115/52
--- NOTE | 2019-01-25 04:00 | NUR ---
VITALS TAKEN. PT SLEEPING. NO VISIBLE SIGNS OF DISTRESS. CALL LIGHT WITHIN REACH.
--- NOTE | 2019-01-25 05:43 | NUR ---
ANTIBIOTICS HUNG. PT SLEEPING SUPINE, BREATHING EQUAL AND UNLABORED ON 2L O2 VIA N.C. NO VISIBLE SIGNS OF DISTRESS.
--- NOTE | 2019-01-25 07:10 | NUR ---
RECEIVED REPORT FROM JUTE BAG CUTTING MACHINE OPERATOR NURSE. PATIENT IS ON 2L NC, A&O X4. IV TO RT FA 22G WITH D5 NS INFUSING AT 30ML/HR. PATIENT IS NPO TO R/O ASP PNA. WILL CONTINUE TO MONITOR
[2019-01-25] MEDS: ALBUTEROL SULFATE/IPRATROPIU 3 ML SOL IH SCH ×3 (07:29→19:23)
--- NOTE | 2019-01-25 07:29 | NUR ---
OFF SUPPLEMENTAL OXYGEN SATURATION 89% ON ROOM AIR POST HHN THERAPY PLACED BACK ON SUPPLEMENTAL OXYGEN AT 2 LPM VIA NC
[2019-01-25 08:00] VITALS: BP 110/72
[2019-01-25] MEDS: POTASSIUM CHLORIDE 10 MEQ TABER PO SCH (08:08)
[2019-01-25] MEDS: METOPROLOL 25 MG TAB PO SCH ×2 (08:08→21:00)
[2019-01-25] MEDS: FUROSEMIDE 20 MG/2 ML VIAL IVP SCH ×2 (08:10→21:07)
[2019-01-25] MEDS: PARoxetine 20 MG TAB PO SCH (08:10)
[2019-01-25] MEDS: FOLIC ACID 1 MG TAB PO SCH (08:10)
[2019-01-25] MEDS: AMIODARONE 200 MG TAB PO SCH ×2 (08:10→21:07)
--- NOTE | 2019-01-25 08:21 | NUR ---
ADMINISTERED MORNING MEDICATION. PATIENT TOOK POTASSIUM PO AND TOLERATED FAIRLY. CRUSHED THE OTHER MEDICATION AND ADMINISTERED IN APPLESAUCE. PATIENT WAS ONLY ABLE TO TOLERATE HALF AND REFUSED THE OTHER HALF OF THE APPLESAUCE. WITHHELD MORNING METOPROLOL D/T LOW HR.
--- NOTE | 2019-01-25 09:15 | NUR ---
PATIENT IS SITTING UP IN BED. PATIENTS FAMILY IS AT BEDSIDE. MD SPOKE TO FAMILY REGARDING DIET CHANGE TO PUREE. WILL ASSESS HOW PATIENT TOLERATES PUREE AT LUNCH AND NOTIFY MD.
--- NOTE | 2019-01-25 11:10 | NUR ---
PATIENT IS SLEEPING IN BED. ON NC 2L. NO SIGNS OF RESP DISTRESS OR LABORED BREATHING. WILL CONTINUE TO MONITOR.
[2019-01-25 12:00] VITALS: BP 103/69
[2019-01-25 12:00] LABS: BASOPHILS # (AUTO) 0.1 K/uL (0.00-0.22); BASOPHILS % (AUTO) 0.8 % (0.0-2.0); EOSINOPHILS # (AUTO) 0.3 K/uL (0-0.4); HEMATOCRIT 34.3 % (36-52); HEMOGLOBIN 11.3 g/dL (12.0-18.0); LYMPHOCYTES # (AUTO) 0.8 K/uL (2.0-11.5); LYMPHOCYTES % (AUTO) 6.8 % (20.5-51.1); MEAN CORPUSCULAR HEMOGLOBIN 30 pg (27-31); MEAN CORPUSCULAR HGB CONC 33 g/dL (33-37); MEAN CORPUSCULAR VOLUME 91.6 fL (80-94); MONOCYTES % (AUTO) 9.2 % (1.7-9.3); NEUTROPHILS # (AUTO) 8.8 K/uL (1.8-7.7); NEUTROPHILS % (AUTO) 80.2 % (42.2-75.2); PLATELET COUNT (AUTO) 269 K/uL (140-450); RED BLOOD CELL COUNT(AUTO) 3.75 MIL/uL (4.20-6.10); RED CELL DISTRIBUTION WIDTH 17.2 % (11.6-13.7)
[2019-01-25 12:51] LABS: ANION GAP 12.1 (8-16); CARBON DIOXIDE 26.8 mmol/L (21-32); CHLORIDE 101 mmol/L (98-107); CREATININE 1.6 mg/dL (0.7-1.3); GLUCOSE 121 mg/dL (74-106); SODIUM SERUM 137 mmol/L (136-145); UREA NITROGEN, BLOOD 39 mg/dL (7-18)
--- NOTE | 2019-01-25 12:55 | NUR ---
RECEIVED CRITICAL LAB VALUE FOR POTASSIUM 2.9. MD ROD MADE AWARE, CHANGE IN ORDERS TO COME.
[2019-01-25 12:56] LABS: POTASSIUM 2.9 mmol/L (3.5-5.1)
[2019-01-25] MEDS ORDERED: POTASSIUM CHLORIDE 40 MEQ, LIDOCAINE MPF 1% - 5 mL VIAL 25 MG in NACL 0.9% 250 ML IV SCH (13:30)
[2019-01-25 13:35] LABS: PHOSPHORUS 3.4 mg/dL (2.5-4.9)
[2019-01-25 16:00] VITALS: BP 93/56
--- NOTE | 2019-01-25 16:40 | NUR ---
PATIENT IS SLEEPING. NC AT 2L. NO SIGNS OF RESP DISTRESS. WILL CONTINUE TO MONITOR
--- NOTE | 2019-01-25 18:15 | NUR ---
PATIENT IS SITTING UP IN BED. KCL ALMOST DONE INFUSING. PATIENT REFUSED ALL DINNER. WILL ENDORSE TO UROLOGY NURSE
--- NOTE | 2019-01-25 19:02 | NUR ---
ENDORSED TO YARN SORTER NURSE FOR CONTINUITY OF CARE
--- NOTE | 2019-01-25 19:03 | NUR ---
RECEIVED BEDSIDE REPORT FROM DAY SHIFT NURSE. NO S/S OF SOB NOTED. SKIN INTACT, WARM AND DRY TO TOUCH. IV SITE ON LFA, 22G, INTACT, PATENT, AND ASYMPTOMATIC. BOARD UPDATED, ALL STANDARD MEASUREMENT ARE MET. BED IN LOW POSITION, CALL LIGHT WITHIN REACH AND ENCOURAGE TO USE. WILL CONTINUE TO MONITOR.
[2019-01-25 20:00] VITALS: BP 110/63
--- NOTE | 2019-01-25 20:30 | NUR ---
PT TRIED TO GO TO RESTROOM BY HIMSELF WITHOUT IV POLE. IV LINE CONNECTOR WAS DISPLACED AND BLOOD CAME. FLUSHED AND CHECKED IV LINE. IV LINE STILL WORKING GOOD. CHANGED PT AND BED. RECONNECT IV. EDUCATE PT TO USE CALL LIGHT WHENEVER PT NEED HELP. PT VERBALIZED UNDERSTANDING. CALL LIGHT WITHIN REACH, BED IN LOW POSITION.
--- NOTE | 2019-01-25 21:07 | NUR ---
GIVEN LASIX, AMIODARONE, AND HEPARIN MD ORDERED. PT TOLERATED WELL. HELD METOPROLOL D/T DECREASED HR, 59. WILL CONTINUE TO MONITOR.
[2019-01-25] MEDS: DEXT 5% /NACL 0.9% 1,000 ML IV SCH (23:00)
--- NOTE | 2019-01-25 23:55 | NUR ---
VS CHECKED, WITHIN PT BASELINE. WILL CONTINUE TO MONITOR.
[2019-01-26] VITALS: BP 108/71
[2019-01-26] MEDS: PIPERACILLIN/TAZOBACTAM 2.25 GM in DEXTROSE 5% 50 ML IV SCH ×4 (00:11→18:22)
--- NOTE | 2019-01-26 01:25 | NUR ---
PT SLEEPING IN BED. NO ACUTE DISTRESS NOTED.
--- NOTE | 2019-01-26 03:30 | NUR ---
PT SLEEPING IN BED. BREATHING EVEN AND UNLABORED. WILL CONTINUE TO MONITOR.
[2019-01-26 04:00] VITALS: BP 97/60
--- NOTE | 2019-01-26 05:23 | NUR ---
GIVEN ZOSYN MD ORDERED. PT TOLERATED WELL. WILL CONTINUE TO MONITOR.
[2019-01-26 06:32] LABS: ANION GAP 12.2 (8-16); CARBON DIOXIDE 27.1 mmol/L (21-32); CHLORIDE 101 mmol/L (98-107); CREATININE 1.5 mg/dL (0.7-1.3); GLUCOSE 118 mg/dL (74-106); POTASSIUM 3.3 mmol/L (3.5-5.1); SODIUM SERUM 137 mmol/L (136-145); UREA NITROGEN, BLOOD 34 mg/dL (7-18)
--- NOTE | 2019-01-26 06:55 | NUR ---
PT SLEEPING IN BED. NO ACUTE DISTRESS NOTED. BED IN LOW POSITION, CALL LIGHT WITHIN REACH.
--- NOTE | 2019-01-26 07:00 | NUR ---
RECEIVED REPORT FROM WELLNESS INSTRUCTOR NURSE. PATIENT IS SLEEPING. NC AT 2L. HEAD OF BED IS UP AT 30 DEGREES. PATIENT IS A&O X4. IV TO RIGHT FA 22G. WILL CONTINUE TO MONITOR
[2019-01-26] MEDS: ALBUTEROL SULFATE/IPRATROPIU 3 ML SOL IH SCH ×3 (07:14→18:58)
[2019-01-26 08:00] VITALS: BP 113/68
--- NOTE | 2019-01-26 08:15 | NUR ---
PATIENT HAS BEEN SCREENED AND CATEGORIZED HIGH NUTRITION RISK. PATIENT WILL BE SEEN WITHIN 1-2 DAYS OF ADMISSION. 01/26/19-01/27/[address]
[2019-01-26] MEDS: AMIODARONE 200 MG TAB PO SCH ×2 (08:37→21:35)
[2019-01-26] MEDS: METOPROLOL 25 MG TAB PO SCH ×2 (08:37→21:37)
[2019-01-26] MEDS: FUROSEMIDE 20 MG/2 ML VIAL IVP SCH ×2 (08:37→21:37)
[2019-01-26] MEDS: FOLIC ACID 1 MG TAB PO SCH (08:37)
[2019-01-26] MEDS: POTASSIUM CHLORIDE 10 MEQ TABER PO SCH (08:37)
[2019-01-26] MEDS: PARoxetine 20 MG TAB PO SCH (08:37)
[2019-01-26 08:47] LABS: BASOPHILS # (AUTO) 0.1 K/uL (0.00-0.22); BASOPHILS % (AUTO) 0.6 % (0.0-2.0); EOSINOPHILS # (AUTO) 0.3 K/uL (0-0.4); EOSINOPHILS % (AUTO) 2.8 % (0.0-4.0); HEMATOCRIT 33.8 % (36-52); LYMPHOCYTES % (AUTO) 9.4 % (20.5-51.1); MEAN CORPUSCULAR HEMOGLOBIN 30 pg (27-31); MEAN CORPUSCULAR HGB CONC 33 g/dL (33-37); MEAN CORPUSCULAR VOLUME 92.1 fL (80-94); MONOCYTES # (AUTO) 1.1 K/uL (0.8-1.0); NEUTROPHILS # (AUTO) 8.5 K/uL (1.8-7.7); NEUTROPHILS % (AUTO) 77.2 % (42.2-75.2); PLATELET COUNT (AUTO) 270 K/uL (140-450); RED BLOOD CELL COUNT(AUTO) 3.67 MIL/uL (4.20-6.10); RED CELL DISTRIBUTION WIDTH 17.4 % (11.6-13.7)
[2019-01-26] MEDS ORDERED: POTASSIUM CHLORIDE 40 MEQ, LIDOCAINE MPF 1% - 5 mL VIAL 25 MG in NACL 0.9% 250 ML IV ONE (09:15)
[2019-01-26] MEDS ORDERED: POTASSIUM CHLORIDE 10 MEQ TABER PO SCH (10:00)
--- NOTE | 2019-01-26 10:30 | NUR ---
PATIENT IS SITTING UP IN BED. FAMILY IS AT BEDSIDE. PATIENT STATED THAT HE IS ABLE TO BREATHE BETTER WHEN SITTING UP AT THE SIDE OF BED. WILL CONTINUE TO MONITOR
[2019-01-26 12:00] VITALS: BP 96/50
--- NOTE | 2019-01-26 13:11 | NUR ---
*S.T. Bedside swallow eval completed* Pt presents w/ adequate oropharyngeal swallow function for textures given from lunch tray. No overt s/s aspiration were observed. Recommend: 1) Continue pureed diet, thin liquids. 2) P.O. meds as tolerated No further tx indicated at this time. DC to [facility] [place] [place] [facility]. Endorsed to CYDNEY Tubbs. Time [id number]
[2019-01-26 16:00] VITALS: BP 108/62
--- NOTE | 2019-01-26 19:20 | NUR ---
RECEIVED BEDSIDE REPORT FROM AM SHIFT RN REYNALDO, FOR PT'S CONTINUITY OF CARE. PT IS LYING DOWN, RT AT BEDSIDE GIVING Addendum: 01/27/19 at 0056 by Rubio Rizvi RN ADDITIONAL INFO: *ADMINISTERING BREATHING TMT. FAMILY MEMBERS AT BEDSIDE. PT DENIES ANY PAIN OR DISCOMFORT AT THIS TIME. PT IS ON 2L O2 VIA NC, HAS RIGHT FOREARM 22G IV INFUSING WITH D5 NS AT 30ML/HR. EXPLAINED TO FAMILY MEMBERS AND PT ABOUT METAL HARDENER ROUTINE, THEY VERBALIZED UNDERSTANDING. BED IS ON LOW POSITION, SIDE RAILS ARE UP, FALL PRECAUTION IN PLACE, AND CALL LIGHT IS WITHIN REACH. WILL MONITOR PT THROUGHOUT SHIFT.
--- NOTE | 2019-01-26 19:22 | NUR ---
PATIENT IS UNABLE TO GIVE SPUTUM SAMPLE AT THIS TIME. PATIENT HAS MILD RALES BILAt
[2019-01-26 20:00] VITALS: BP 107/68
--- NOTE | 2019-01-26 21:35 | NUR ---
ADMINISTERED SCHEDULED PO, SUBQ AND IV PUSH MEDICATIONS ORDERED. PT TOLERATED THEM WELL. MADE PT COMFORTABLE, SHOWING NO SIGNS OF DISTRESS. WILL CONTINUE TO MONITOR PT.
[2019-01-26] MEDS: DEXT 5% /NACL 0.9% 1,000 ML IV SCH (23:00)
[2019-01-27] VITALS: BP 130/67
--- NOTE | 2019-01-27 00:10 | NUR ---
ADMINISTERED IV ABX ORDERED. PT LYING DOWN WITH NO SIGNS OF DISTRESS. VS CHECKED AND CHARTED.
[2019-01-27] MEDS: PIPERACILLIN/TAZOBACTAM 2.25 GM in DEXTROSE 5% 50 ML IV SCH ×5 (00:48→23:10)
--- NOTE | 2019-01-27 00:50 | NUR ---
PT TRIED TO GET OUT OF BED. ASSISTED PT TO THE RESTROOM. PT TOLERATED ACTIVITY WELL. REORIENTED PT TO USE URINAL AT BEDSIDE. WILL CONTINUE TO MONITOR PT.
--- NOTE | 2019-01-27 02:45 | NUR ---
PATIENT'S IV INFILTRATED. RIGHT FOREARM TAUT AND SWOLLEN FROM IV. DISCONTINUED IV. PT AWAKE, ASSISTED TO URINAL. WILL INSERT NEW IV.
[2019-01-27 04:00] VITALS: BP 113/49
--- NOTE | 2019-01-27 04:00 | NUR ---
PATIENT REFUSED NEW IV INSERTION. WILL TRY AGAIN LATER.
--- NOTE | 2019-01-27 05:35 | NUR ---
INSERTED NEW IV AT 0515. NEW IV SITE - LEFT HAND 24G. PT TOLERATED ACTIVITY WELL. PT REFUSED LAB BLOOD COLLECTION. HUNG IV ABX ORDERED. PT ON 2L O2 NC, DENIES PAIN OR SHORTNESS OF BREATH. WILL ENDORSE TO AM SHIFT RN FOR PATIENT'S CONTINUITY OF CARE.
[2019-01-27] MEDS: ALBUTEROL SULFATE/IPRATROPIU 3 ML SOL IH SCH ×3 (07:06→19:05)
--- NOTE | 2019-01-27 07:10 | NUR ---
RECEIVED BEDSIDE REPORT FROM SUPERINTENDENT [facility]OPH[employer] [employer]ORAT[facility] NURSE FOR CONTINUITY OF CARE. PATIENT AWAKE AND RESTING ON BED. PATIENT SPEAKS ARGENTINE, ABLE TO FOLLOW SIMPLE COMMAND AND MAKE NEEDS KNOWN. PATIENT IS ON 2LPM VIA NC. LUNGS ARE CLEAR ON AUSCULTATION. DENIED PAIN. NO SIGNS OF DISTRESS NOTED. IV ON L HAND 24G, CLEAN AND INTACT, INFUSING PER MD ORDER. SKIN INTACT AND DRY. PATIENT IS CONTINENT AND URANAL IS WITHIN REACH. PATIENT IS AMBULATE WITH ASSIST. FALL RISK PROTOCOL IN PLACE. 1500 ML FLUID RESTRICTION AND SIGN POSTED. TELE MONITOR ATTACHED. SAFETY MEASURES IN PLACE. BED IN LOW POSITION AND CALL LIGHT WITHIN REACH. BED ALARM ACTIVATED. INSTRUCTED PATIENT TO USE THE CALL LIGHT AND PATIENT NODDED HIS HEAD.
[2019-01-27 08:00] VITALS: BP 103/71
[2019-01-27] MEDS: FUROSEMIDE 20 MG/2 ML VIAL IVP SCH ×2 (09:41→20:37)
[2019-01-27] MEDS: AMIODARONE 200 MG TAB PO SCH ×2 (09:41→20:36)
[2019-01-27] MEDS: PARoxetine 20 MG TAB PO SCH (09:42)
[2019-01-27] MEDS: POTASSIUM CHLORIDE 10 MEQ TABER PO SCH (09:42)
[2019-01-27] MEDS: FOLIC ACID 1 MG TAB PO SCH (09:43)
[2019-01-27] MEDS: METOPROLOL 25 MG TAB PO SCH ×2 (09:43→20:37)
--- NOTE | 2019-01-27 09:48 | NUR ---
ADMINISTERED MEDS PER MD ORDER, PATIENT TOLERATED WELL. MEDS EDUCATION PROVIDED TO PATIENT AND DAUGHTER SCOT AT BEDSIDE. NO SIGNS OF DISTRESS NOTED. SAFETY MEASURES IN PLACE. BED IN LOW POSITION AND CALL LIGHT WITHIN REACH. BED ALARM ACTIVATED. TELE MONITOR ATTACHED.
--- NOTE | 2019-01-27 09:49 | NUR ---
HOLD METOPROLPL DUE TO PULSE IS 56 UNDER 60. EXPLAINED TO PATIENT AND PATIENT'S DAUGHTER SCOT, BOTH VERBALIZED OK. SAFETY MEASURES IN PLACE. BED IN LOW POSITION AND CALL LIGHT WITHIN REACH.
--- NOTE | 2019-01-27 11:18 | NUR ---
PATIENT IS RESTING ON BED AT THIS TIME. RESPIRATION EVEN AND UNLABORED ON 2LPM VIA NC. NO SIGNS OF DISTRESS NOTED. SAFETY MEASURES IN PLACE. BED IN LOW POSITION AND CALL LIGHT WITHIN REACH. BED ALARM ACTIVATED. TELE MONITOR ATTACHED.
[2019-01-27 12:00] VITALS: BP 109/67
--- NOTE | 2019-01-27 12:24 | NUR ---
ADMINISTERED MED PER MD ORDER, MED EDUCATION PROVIDED TO PATIENT'S FAMILY ALLI AND SISTER IN LAW HO AT BEDSIDE. PATIENT AWAKE AND RESTING ON BED. NO SIGNS OF DISTRESS NOTED. SAFETY MEASURES IN PLACE. BED IN LOW POSITION AND CALL LIGHT WITHIN REACH. BED ALARM ACTIVATED. TELE MONITOR ATTACHED.
--- NOTE | 2019-01-27 13:20 | NUR ---
PATIENT IS RESTING ON BED. AROUSABLE TO VOICE. RESPIRATION EVEN AND UNLABORED ON 2LPM VIA NC. NO SIGNS OF DISTRESS NOTED. TELE MONITOR ATTACHED. SAFETY MEASURES IN PLACE. BED IN LOW POSITION AND CALL LIGHT WITHIN REACH. BED ALARM ACTIVATED.
--- NOTE | 2019-01-27 15:40 | NUR ---
ASSISTED DRIVER/MERCHANDISER TO CHANGE PATIENT. PATIENT TOLERATED WELL. NO SIGNS OF DISTRESS NOTED. TELE MONITOR ATTACHED. SAFETY MEASURES IN PLACE. BED IN LOW POSITION AND CALL LIGHT WITHIN REACH. BED ALARM ACTIVATED.
[2019-01-27 16:00] VITALS: BP 115/72
--- NOTE | 2019-01-27 17:50 | NUR ---
PATIENT AWAKE AND RESTING ON BED. DENIED PAIN. RESPIRATION EVEN AND UNLABORED ON 2LPM VIA NC. NO SIGNS OF DISTRESS NOTED. TELE MONITOR ATTACHED. SAFETY MEASURES IN PLACE. BED IN LOW POSITION AND CALL LIGHT WITHIN REACH. BED ALARM ACTIVATED.
--- NOTE | 2019-01-27 19:20 | NUR ---
ENDORSED PATIENT AT BEDSIDE TO WOOD CLUB NECK WHIPPER NURSE FOR CONTINUITY OF CARE. PATIENT IS AWAKE. NO SIGNS OF DISTRESS NOTED. SCOT AND GRANDSON DENYS BY BEDSIDE. PATIENT IS IN STABLE CONDITION. TELE MONITOR ATTACHED. SAFETY MEASURES IN PLACE. BED IN LOW POSITION AND CALL LIGHT WITHIN REACH. BED ALARM ACTIVATED.
--- NOTE | 2019-01-27 19:21 | NUR ---
RECEIEVED REPORT FROM AM NURSE. PT AWAKE, ALERT AND ORIENTED. ABLE TO FOLLOW COMMANDS. VISIBLE CHEST RISE AND FALL ON 2L O2 VIA N.C., NO VISIBLE SIGNS OF DISTRESS. FAMILY AT BEDSIDE. ENCOURAGING PT TO EAT. LEFT HAND 24G INTACT AND INFUSING WELL. FALL PRECAUTIONS IN PLACE, BED IN LOW POSITION, BED ALARM ON. CALL LIGHT WITHIN REACH.
--- NOTE | 2019-01-27 20:37 | NUR ---
SPOKE WITH RESIDENT MD ROGERS REGARDING GIVING LASIX WITH POTASSIUM LEVEL 3.3. PER MD BOYD TO ADMINISTER LASIX. MEDICATION ADMINISTERED, PT TOLERATED WELL. ASSISTED TO SIT UP AT BEDSIDE TO USE URINAL.
--- NOTE | 2019-01-27 20:45 | NUR ---
PT PULLED UP IN BED WITH ASSISTANCE FROM GASOLINE CATALYST OPERATOR. PT SAT UP IN BED TO ALLOW FOR LUNG EXPANSION. VISIBLE SOB NOTED. CALLED RT FOR BREATHING TX.
--- NOTE | 2019-01-27 22:43 | NUR ---
ROUNDED ON PT. ASSISTED PT TO SIT UP IN BED. PT RESTING COMFORTABLY, NO VISIBLE SIGNS OF DISTRESS. BED ALARM ON, CALL LIGHT WITHIN REACH.
[2019-01-27] MEDS: DEXT 5% /NACL 0.9% 1,000 ML IV SCH (23:00)
[2019-01-28 00:05] VITALS: BP 97/69
--- NOTE | 2019-01-28 01:05 | NUR ---
ROUNDED ON PT. PT SLEEPING IN BED. NO VISIBLE SIGNS OF DISTRESS. BREATHING EQUAL AND UNLABORED.
--- NOTE | 2019-01-28 04:20 | NUR ---
CHECKED ON PT. PT SLEEPING BUT EASILY AWAKEN BY NOISE. NO VISIBLE SIGNS OF DISTRESS. EMPTIED URINAL AND PLACED ON BEDSIDE TABLE. WILL CONTINUE TO MONITOR. CALL LIGHT WITHIN REACH.
[2019-01-28] MEDS: PIPERACILLIN/TAZOBACTAM 2.25 GM in DEXTROSE 5% 50 ML IV SCH (05:01)
--- NOTE | 2019-01-28 05:52 | NUR ---
PT CALLING OUT LOUD. WALKED IN TO FIND PT SITTING UPRIGHT VISIBLY SHORT OF BREATH. PT NASAL CANNULA NOT ON. PLACED N.C BACK ON PT. PLACED PT IN HIGH FOWLERS POSITION TO AID IN LUNG EXPANSION. O2 SATURATION 90%, INCREASED O2 TO 4L AND CALLED RT FOR BREATHING TX.
[2019-01-28] MEDS: ALBUTEROL SULFATE/IPRATROPIU 3 ML SOL IH SCH ×2 (06:13→13:38)
--- NOTE | 2019-01-28 06:56 | NUR ---
PT SPEAKING IN LUXEMBOURGISH AND POINTING AT CHEST. CONNECTED PT TO PULSE OX, SATURATION 94% AT THIS TIME. USED [employer] FOR INSURANCE PRODUCER. PT STATED "I CAN'T BREATH", THROUGH INSURANCE PRODUCER, PT ASSURED THAT HIS OXYGEN LEVELS WERE SATISFACTORY. PT THEN TURNED HIS HEAD AND REFUSED TO SPEAK WITH INSURANCE PRODUCER.
--- NOTE | 2019-01-28 07:15 | NUR ---
RECEIVED BEDSIDE REPORT FROM SPRING TIER NURSE FOR CONTINUITY OF CARE. PATIENT AWAKE AND SITTING UP ON BED. PATIENT SPEAKS INDONESIAN, ABLE TO FOLLOW SIMPLE COMMAND AND MAKE NEEDS KNOWN. PATIENT IS ON 4LPM VIA NC. WHEN ASK FOR PAIN, PATIENT SHAKE HIS HEAD. NO SIGNS OF DISTRESS NOTED. IV INFILTRATED AND WILL START A NEW IV SITE. SKIN INTACT AND DRY. PATIENT IS CONTINENT AND URANAL IS WITHIN REACH. PATIENT IS AMBULATE WITH ASSIST. FALL RISK PROTOCOL IN PLACE. 1500 ML FLUID RESTRICTION AND SIGN POSTED. TELE MONITOR ATTACHED. SAFETY MEASURES IN PLACE. BED IN LOW POSITION AND CALL LIGHT WITHIN REACH. BED ALARM ACTIVATED. INSTRUCTED PATIENT TO USE THE CALL LIGHT AND PATIENT NODDED HIS HEAD.
[2019-01-28 08:00] VITALS: BP 103/77
--- NOTE | 2019-01-28 08:15 | NUR ---
STARTED NEW IV ON RAC 22G, INFUSING PER MD ORDER. AND NEW IV ON RFA 22G, SL. PATIENT TOLERATED WELL. SAFETY MEASURE IN PLACE. BED IN LOW POSITION AND CALL LIGHT WITHIN REACH. BED ALARM ACTIVATED. INSTRUCTED PATIENT TO USE THE CALL LIGHT FOR ANY ASSISTANCE AND PATIENT NODDED HIS HEAD.
--- NOTE | 2019-01-28 08:30 | NUR ---
PLACED PT ON 40% VENTI MASK AND WAS NOTIFIED
[2019-01-28] MEDS: POTASSIUM CHLORIDE 10 MEQ TABER PO SCH (09:33)
[2019-01-28] MEDS: AMIODARONE 200 MG TAB PO SCH (09:33)
[2019-01-28] MEDS: METOPROLOL 25 MG TAB PO SCH (09:34)
[2019-01-28] MEDS: PARoxetine 20 MG TAB PO SCH (09:34)
[2019-01-28] MEDS: FOLIC ACID 1 MG TAB PO SCH (09:34)
--- NOTE | 2019-01-28 09:39 | NUR ---
ADMINISTERED MEDS PER MD ORDER, PATIENT TOLERATED WELL. MEDS EDUCATION PROVIDED TO PATIENT AND DAUGHTER SCOT AND THUC AT BEDSIDE. PATIENT AWAKE AND RESTING ON BED AT THIS TIME. RESPIRATION EVEN AND UNLABORED ON 12LPM VIA MASK, SPO2 AT 95% AT THIS TIME. DENIED PAIN. NO SIGNS OF DISTRESS NOTED. TELE MONITOR ATTACHED. SAFETY MEASURES IN PLACE. BED IN LOW POSITION AND CALL LIGHT WITHIN REACH. INSTRUCTED PATIENT AND FAMILY TO USE THE CALL LIGHT FOR ANY ASSISTANCE AND ALL WAS AWARE.
[2019-01-28] MEDS ORDERED: FUROSEMIDE 20 MG/2 ML VIAL IVP SCH ×2 (10:00→21:00)
--- NOTE | 2019-01-28 11:17 | NUR ---
PATIENT IS SLEEPING ON BED AT THIS TIME, AROUSABLE TO VOICE. FLACC 0. RESPIRATION EVEN AND UNLABORED NOTED AND SPO2 AT 96%. NO SIGNS OF DISTRESS NOTED. TELE MONITOR ATTACHED. SAFETY MEASURES IN PLACE. BED IN LOW POSITION AND CALL LIGHT WITHIN REACH. BED ALARM ACTIVATED.
--- NOTE | 2019-01-28 11:40 | NUR ---
PATIENT ATTEMPTED TO GET OUT OF BED AND ACTIVATED BED ALARM. FOUND PATIENT OFF FROM OXYGEN AND SITTING ON EDGE OF BED. PATIENT BITES HIS LOW LIP AND MINIMAL BLEEDING. PATIENT WAS DESATURATING TO 86% ON RA. POSITIONED PATIENT BACK ON BED AND REORIENTED PATIENT NOT TO GET OUT OF BED BY HIMSELF. VITAL SIGNS TAKEN, BP 105/72, PULSE 61, SPO2 95% ON 10LPM VIA MASK. NOTIFIED DR VILLA AND DR VILLA WAS AWARE. PER DR VILLA, REORIENTING PATIENT AND ENSURE OF FALL RISK PROTOCOL IN PLACE.
--- NOTE | 2019-01-28 11:50 | NUR ---
CALLED PATIENT'S DAUGHTER SCOT AND EXPLAINED TO SCOT THAT PATIENT WAS ATTEMPT TO GET OUT OF BED AND SCOT WAS AWARE. SCOT SPOKE TO PATIENT OVER THE PHONE. PER SCOT, PATIENT WAS COMPLAINED THAT HE DOESN'T LIKE THE OXYGEN MASK AND IT MAKES HIM UNCOMFORTABLE, BUT IF HE NEEDS IT, HE WILL TRY TO KEEP IT ON. SCOT ALSO SPOKE TO HER FATHER AND TOLD HIM TO USE THE CALL LIGHT FOR ANY ASSISTANCE.
[2019-01-28 12:00] VITALS: BP 101/70
--- NOTE | 2019-01-28 12:30 | NUR ---
PATIENT IS RESTING ON BED AT THIS TIME. RESPIRATION EVEN AND UNLABORED ON 10LPM VIA MASK, SPO2 97% AND PULSE 54. TELE MONITOR ATTACHED. SAFETY MEASURES IN PLACE. BED IN LOW POSITION AND CALL LIGHT WITHIN REACH. BED ALARM ACTIVATED.
[2019-01-28 12:37] LABS: CARBON DIOXIDE 21.8 mmol/L (21-32); CHLORIDE 100 mmol/L (98-107); CREATININE 2.5 mg/dL (0.7-1.3); GLUCOSE 104 mg/dL (74-106); POTASSIUM 4.5 mmol/L (3.5-5.1); SODIUM SERUM 138 mmol/L (136-145); UREA NITROGEN, BLOOD 44 mg/dL (7-18)
[2019-01-28 12:47] LABS: ANION GAP 20.7 (8-16)
--- NOTE | 2019-01-28 13:34 | NUR ---
PATIENT SAID " BATHROOM." EXPLAINED TO PATIENT DUE TO HIS WEAKNESS, HE WILL NOT BE ABLE TO WALK SAFELY TO USE THE BATHROOM. PROVIDED BEDPAN AND ASSISTED PATIENT TO USE THE BEDPAN. PATIENT URINATED. POSITIONED PATIENT COMFORTABLY AFTER. TELE MONITOR ATTACHED. BED IN LOW POSITION AND CALL LIGHT WITHIN REACH. BED ALARM ACTIVATED.
--- NOTE | 2019-01-28 13:53 | NUR ---
ALLI IS AT BEDSIDE. SAFETY MEASURES IN PLACE. BED IN LOW POSITION AND CALL LIGHT WITHIN REACH.
--- NOTE | 2019-01-28 15:25 | NUR ---
PATIENT AWAKE AND TALKING TO THUC AT BEDSIDE. RESPIRATION EVEN AND UNLABORED ON VENTURI MASK 12 LPM, SPO2 95%. DENIED PAIN. NO SIGNS OF DISTRESS NOTED. TELE MONITOR ATTACHED. SAFETY MEASURES IN PLACE. BED IN LOW POSITION AND CALL LIGHT WITHIN REACH. BED ALARM ACTIVATED.
[2019-01-28 16:00] VITALS: BP 105/63
--- NOTE | 2019-01-28 16:05 | NUR ---
RECEIVED CRITICAL LAB FOR TROPONIN 0.[address] ROD. DR ROD WAS AWARE OF CRITICAL LAB VALUE. NO ORDER RECEIVED.
--- NOTE | 2019-01-28 16:50 | NUR ---
FOUND PATIENT PULLED OUT HIS VENTURI MASK AND DESATURATED TO SPO2 82%. ALLI WAS ATTEMPTING TO PUT MASK ON FOR PATIENT, BUT PATIENT REFUSED AND KEEP ON PULLING IT OFF. APPLIED VENTURI MASK ON AND SPO2 WENT UP TO 94%. REORIENTED AND EDUCATED PATIENT NOT TO TAKE OFF HIS MASK. DR ROD WAS AT BEDSIDE. TELE MONITOR ATTACHED. BED IN LOW POSITION AND CALL LIGHT WITHIN REACH. BED ALARM ACTIVATED.
--- NOTE | 2019-01-28 17:24 | NUR ---
SON IN LAW JETHRO AND PATIENT'S ALLI IS AT BEDSIDE TALKING TO PATIENT. SAFETY MEASURES IN PLACE. BED IN LOW POSITION AND CALL LIGHT WITHIN REACH. BED ALARM ACTIVATED.
--- NOTE | 2019-01-28 17:35 | NUR ---
DR ROD SPOKE TO PATIENT' SON IN LAW GIOVANNA AND ALLI AT BEDSIDE. PATIENT REMOVED OXYGEN MASK MULTIPLE TIME THROUGHOUT THE DAY AND HE DESATURATED. GIOVANNA WAS AWARE AND ACKNOWLEDGE.
--- NOTE | 2019-01-28 18:25 | NUR ---
and grandson, at bedside, apply the restraint and demonstrate how it works to prevent the patient from pulling out oxygen, but patient refused the restraint and try to fight, restraint removed right away.
--- NOTE | 2019-01-28 18:35 | NUR ---
NOTICED PATIENT AGITATED. DR ROD AND DR ROGERS AT BEDSIDE. PATIENT IS DNR SINCE ADMISSION AND BOTH DR AWARE. PATIENT IS ON 11 LPM VIA VENTURI MASK AND SPO2 DESATURATING TO 78%. REPOSITIONED PATIENT TO HIGH [place] POSITION AND INSTRUCTED PATIENT TO BREATH. TELE MONITOR ATTACHED AND SPO2 ATTACHED.
--- NOTE | 2019-01-28 18:37 | NUR ---
PATIENT'S PULSE DROPPED TO 35. [facility] RESPONSE CALLED.
--- NOTE | 2019-01-28 18:45 | NUR ---
DR ROD CALLED PATIENT'S DAUGHTER SCOT AND INFORMED SCOT OF PATIENT'S CURRENT CONDITION.
[2019-01-28] MEDS ORDERED: MORPHINE SULFATE 2 MG/ML SYR IVP PRN (18:50)
--- NOTE | 2019-01-28 18:50 | NUR ---
WENT IN FOR THE RAPID RESPONSE. PLACED PT ON NON-REBREATHER. SATURATION & HEART RATE UNSTABLE. CONTINUED TO MONITOR
--- NOTE | 2019-01-28 18:50 | NUR ---
GAVE D50 IVP FOR BLOOD GLUCOSE 67. MED UNABLE TO SCAN. WITNESS WITH CHARGE NURSE.
[2019-01-28] MEDS ORDERED: MORPHINE SULFATE 50 MG in NACL 0.9% 45 ML IV PRN (18:55)
[2019-01-28] MEDS ORDERED: DEXTROSE 50% 50 ML SYR IVP ONE (18:58)
--- NOTE | 2019-01-28 19:00 | NUR ---
PALPATED CAROTID PULSE FOR 15 SECONDS AND SENSED PULSELESS. TELE MONITOR SHOWED ASYSTOLE. UNABLE TO OBTAIN SPO2 AND BLOOD PRESSURE. DR ROD PRONOUNCED AT THIS TIME.
--- NOTE | 2019-01-28 19:10 | NUR ---
ENDORSED POST-MORTEM CARE TO SOCIAL AND POLITICAL STUDIES PROFESSOR NURSE. PATIENT'S FAMILY BY BEDSIDE.
--- NOTE | 2019-01-28 21:00 | NUR ---
[facility] CALLED. GAVE ALL INFORMATION REQUIRED. .
--- NOTE | 2019-01-28 21:30 | NUR ---
[facility] OFFICE CALLED. INFORMATION GIVEN. WILL RECEIVE A CALL BACK.
--- NOTE | 2019-01-28 21:45 | NUR ---
RECREATION PROGRAMMER CALLED BACK. CORONERS NAME ARLEY RASMUSSEN. INFORMATION GIVEN. RECREATION PROGRAMMER RELEASED PATIENT SAYING THAT THIS IS NOT A CORONERS CASE. .
== END 2019-01-28 19:00 | disposition expired | DRG 137 ==
LOC: MED 19:01 → MTU 21:43
PROVIDERS: ADMIT General Practice; ATTEND General Practice
DX: J69.0 Pneumonitis due to inhalation of food and vomit (principal); N17.0 Acute kidney failure with tubular necrosis; E43 Unspecified severe protein-calorie malnutrition; I50.43 Acute on chronic combined systolic (congestive) and diastolic (congestive) heart failure; I48.0 Paroxysmal atrial fibrillation; D64.9 Anemia, unspecified; I46.9 Cardiac arrest, cause unspecified; Z68.22 Body mass index [BMI] 22.0-22.9, adult; E78.5 Hyperlipidemia, unspecified; K21.9 Gastro-esophageal reflux disease without esophagitis; I25.10 Atherosclerotic heart disease of native coronary artery without angina pectoris; E87.6 Hypokalemia; F32.9 Major depressive disorder, single episode, unspecified; I11.0 Hypertensive heart disease with heart failure; N17.9 Acute kidney failure, unspecified; Z66 Do not resuscitate; Z79.899 Other long term (current) drug therapy; Z87.891 Personal history of nicotine dependence; Z95.1 Presence of aortocoronary bypass graft; Z86.73 Personal history of transient ischemic attack (TIA), and cerebral infarction without residual deficits
CPT/HCPCS: 36415; 36600; 71045; 71046; 80048; 80053; 81003; 82150; 82803; 82948; 83036; 83605; 83690; 83735; 83880; 84100; 84439; 84443; 84484; 85025; 85610; 85730; 87070; 87081; 87205; 89220; 92610; 93005; 94640; 97110; 97116; 97161-GP; 97530; 99285; J1644; J1940; J2001; J2543; J3480; J7030; J7042; J7060; J7620; Q0092